=== PATIENT | female | born 1935 | race Caucasian/White ===

== ENCOUNTER → 2017-04-01 | Outpatient (CLI) | payer MEDICARE, BC ==
[~2017-04-01] VITALS: Ht 162.6 cm; Wt 103.5 kg
== END ==
LOC: RC 08:24
PROVIDERS: ATTEND Family Medicine
DX: R06.02 Shortness of breath (principal); R94.2 Abnormal results of pulmonary function studies; Z87.891 Personal history of nicotine dependence
CPT/HCPCS: 94060; 94726

== ENCOUNTER 2017-06-01 10:45 | Observation (INO) ==
[2017-06-01 15:54] VITALS: BMI 38.7
[2017-06-01] MEDS ORDERED: HEPARIN DRIP 20,000 UNIT/500 ML BAG IV SCH (17:00)
[2017-06-01] MEDS ORDERED: HEPARIN 1,000unit/ml INJECTION 10ml IV ONE ×2 (17:01→17:20)
--- NOTE | 2017-06-01 17:22 | Cardiology History & Physical ---
History of Present Illness Chief complaint: PAD HPI: Pt is an 82yo female well known to [facility] service, we follow her for carotid stenosis, HTN, pulmonary hypertension and PAD. She presented to an office visit this AM with complaints of bilateral toes turning black and purple, acute onset 3 days ago with associated numbness and tingling. She was admitted for anticoagulation therapy and aortogram with runoffs tomorrow. She denies chest pain, exertional dyspnea. She underwent cardiac cath recently with no obstructive CAD. Review of Systems - Constitutional Constitutional: Absent: weight gain, weight loss - EENMT Eyes: Absent: change in vision, loss of vision Ears: Absent: ear pain Balance: Absent: vertigo Mouth/Throat: Absent: changes in swallowing - Cardiovascular Cardiovascular: Absent: chest pain, palpitations, syncope, dyspnea on exertion, edema Vascular: Present: other (dusky toes and feet x 3 days). Absent: pedal edema - Respiratory Respiratory: Absent: dyspnea, dyspnea on exertion - Gastrointestinal Gastrointestinal: Absent: abdominal pain, change in bowel habits - Genitourinary Genitourinary: Present: urinary frequency - Musculoskeletal Musculoskeletal: Present: limited range of motion. Absent: back pain - Integumentary/Breasts Integumentary: Absent: erythema, rash, swelling - Neurological Neurological: Absent: abnormal gait, abnormal movements - Psychiatric Psychiatric: Present: depression - Endocrine Endocrine: Absent: palpitations - Hematologic/Lymphatic Hematologic/Lymphatic: Absent: easy bruising - Allergic/Immunologic Allergic/Immunologic: Absent: seasonal rhinorrhea PFSH Patient Stated Medical History Transient Ischemic Attacks ( Yes: 2003 TIA) Cataracts Yes Dental Problems Yes: DENTURES Angina Yes Hypertension Yes: ON MEDS Other Cardiology Yes: REPORTS LEAKY VALVES Diabetes Mellitus Type 2 Yes Gastroesophageal Reflux Yes Disease Hx Urinary Tract Infection Yes Depression Yes Surgical History: left CEA Family History: family hx of CAD - Social History Smoking status: Former smoker Housing: house Current occupational status: retired Current residence: Independent Living Medications Home Medications Medication Instructions Recorded Confirmed Type Allopurinol [Zyloprim] 1 tab PO DAILY 05/26/17 06/01/17 History Lisinopril [Zestril] 5 mg PO DAILY 05/26/17 06/01/17 History Metoprolol Tartrate [Lopressor] 50 mg PO BID 05/26/17 06/01/17 History Novolin 70/30 (100Unit/ml) Inj 40 unit SQ WS 05/26/17 06/01/17 History [Novolin 70/30] Novolin 70/30 (100Unit/ml) Inj 40 units SQ WB 05/26/17 06/01/17 History [Novolin 70/30] Ranitidine [Zantac] 150 mg PO DAILY 05/26/17 06/01/17 History Venlafaxine Xr [Effexor Xr] 75 mg PO DAILY 05/26/17 06/01/17 History Venlafaxine Xr [Effexor Xr] 150 mg PO DAILY 05/26/17 06/01/17 History Acetaminophen/Diphenhydramine 3 each PO HS 06/01/17 06/01/17 History [Acetaminophen Pm Caplet] Allergies Allergy/AdvReac Type Severity Reaction Status Date / Time No Known Drug Allergies Allergy Verified 05/26/17 12:03 Exam Vital signs: Temperature 96.3 F L 06/01/17 15:51 Pulse Rate 85 06/01/17 15:51 Respiratory Rate 18 06/01/17 15:51 Blood Pressure 166/71 H 06/01/17 15:51 Pulse Oximetry 96 06/01/17 15:51 Oxygen Delivery Method Room Air - Constitutional no acute distress - Routine HEENT Exam Head: Present: normocephalic, atraumatic Eye: Present: PERRL, conjunctivae pink ENT: Present: mucous membranes moist Nose: moist mucous membranes - Routine Neck Exam Present: carotid bruit (bilateral). Absent: JVD - Routine Respiratory Exam Present: CTA bilaterally - Routine Cardiovascular Exam Present: RRR. Absent: JVD - Routine Abdominal Exam Present: soft, normoactive bowel sounds, non tender. Absent: distended - Routine Extremities Exam Present: cyanosis (bilateral feet/toes), no edema, extremity cold to touch. Absent: normal capillary refill - Routine Back/Spine/Pelvis Exam Back/Spine: Present: full ROM - Routine Skin Exam Present: intact. Absent: erythema - Routine Neurological Exam Present: alert, oriented X3, CN II-XII intact - Routine Psychiatric Exam Present: normal affect, normal thought process Results 06/02/17 02:08 06/02/17 02:08 Intake and Output 06/01/17 06/01/17 06/01/17 06:59 14:59 22:59 Other: Weight 102.5 kg Patient Weight 06/02/17 06:59 Weight 102.5 kg Hospital Course This is a general summary of the patient's hospital course. For more details refer to the complete medical record. Time spent with patient: 25 - 35 minutes DVT Prophylaxis: Heparin drip GI Prophylaxis: Pepcid Assessment and Plan (1) Atherosclerosis of [place] artery of both lower extremities Current visit: Yes Status: Acute Heparin gtt initiated. Plan for aortogram with runoffs in AM. (2) Essential (primary) hypertension Current visit: Yes Status: Chronic Home lisinopril 5mg, metoprolol 50mg bid. Monitor. (3) Mixed hyperlipidemia Current visit: Yes Status: Chronic will initiate a statin (4) Type 2 diabetes mellitus without complications Current visit: Yes Status: Chronic Home insulin doses, ACHS blood glucose - Attestation Attestation Narrative: 06/02/17 12:41 Recommendation After examining the patient I agree with the above assessment. I am involved in the formulation of the patient's plan of care. Sepsis Assessment - Evaluation Sepsis screening result: No Definite Risk
[2017-06-01] MEDS: HEPARIN DRIP 20,000 UNIT/500 ML BAG IV SCH (17:50)
[2017-06-01] MEDS ORDERED: INSULIN NPH/REG 70/30 INJECTION SQ SCH (18:30)
--- NOTE | 2017-06-01 18:59 | Pharmacy Consult ---
Pharmacy Consult-Heparin - Consult Information HEPARIN CONSULT (Initial): 05/26/17 platelet count = 253 T/mm3. PTT Target Range = 50-75 sec. Will give Heparin Bolus of 6,000 units, start Heparin Drip at 1,200 units/hr ( 30 ml/hr). Heparin 20,000 units in D5W 500ml. Pharmacy will continue to monitor and make adjustments accordingly. Thank you.
[2017-06-01] MEDS ORDERED: APAP/DIPHENHYDRAMINE 500 MG/25 MG TABLET PO SCH (22:00)
[2017-06-01] MEDS ORDERED: RANITIDINE 300 MG TABLET PO ONE (22:00)
[2017-06-02] MEDS: INSULIN NPH/REG 70/30 INJECTION SQ SCH ×2 (05:46→08:25)
[2017-06-02] MEDS ORDERED: NS 1,000 ML IV SCH (07:00)
--- NOTE | 2017-06-02 07:22 | Pharmacy Consult ---
Pharmacy Consult-Heparin - Laboratory Information Heparin Plt Count 262 T/MM3 (130-400) 06/02/17 02:08 APTT 81.9 SEC (24-36) H 06/02/17 02:08 - Consult Information HEPARIN CONSULT (Recurring): PTT = 81.9 Sec. Platelet count = 262 T/mm3. Will adjust Heparin Drip to 1000 units/hr (25 ml/hr) at 0230 We will not recheck PTT because heparin drip will be dc'd at 1100. Thank you.
[2017-06-02 07:27] VITALS: TEMP 96.5
[2017-06-02] MEDS ORDERED: RANITIDINE 150 MG TABLET PO SCH (09:00)
[2017-06-02] MEDS ORDERED: ALLOPURINOL 300 MG TABLET PO SCH (09:00)
[2017-06-02] MEDS ORDERED: Venlaflaxine XR 75 MG CAPSULE (24hr) PO SCH (09:00)
[2017-06-02] MEDS ORDERED: LISINOPRIL 5 MG TABLET PO SCH (09:00)
[2017-06-02] MEDS: HEPARIN DRIP 20,000 UNIT/500 ML BAG IV SCH (11:56)
[2017-06-02] MEDS ORDERED: LIDOCAINE 1% (10mg/ml) 30ml SDV INJ ONE (12:38)
[2017-06-02] MEDS ORDERED: HEPARIN 1,000 UNITS/500 ML PREMIX (*CVL ONLY*) IV ONE (12:38)
[2017-06-02] MEDS ORDERED: MIDAZOLAM 2mg/2ml INJECTION ONE (12:50)
[2017-06-02] MEDS ORDERED: FentaNYL 100 MCG/2 ML INJECTION ONE (12:50)
[2017-06-02] MEDS ORDERED: PNEUMOCOCCAL 13 VACCINE 0.5ml INJECTION IM ONE (12:58)
[2017-06-02] MEDS ORDERED: Bisacodyl EC TAB 5 MG TABLET PO PRN (14:22)
[2017-06-02] MEDS ORDERED: ONDANSETRON 4 MG/2 ML INJECTION IVP PRN (14:22)
[2017-06-02] MEDS ORDERED: ATROPINE 1 MG/ML INJECTION IVP PRN (14:22)
[2017-06-02] MEDS ORDERED: ACETAMINOPHEN 325 MG TABLET PO PRN (14:22)
[2017-06-02] MEDS ORDERED: NITROGLYCERIN 0.4 MG SUBLINGUAL TABLET SL PRN (14:22)
[2017-06-02] MEDS ORDERED: HYDROCODONE/APAP 7.5 MG/325 MG TABLET PO PRN (14:22)
[2017-06-02] MEDS ORDERED: MAG-AL + SIM ORAL LIQUID 30ml PO PRN (14:22)
[2017-06-02] MEDS ORDERED: PROMETHAZINE 25 MG INJECTION IVP PRN (14:22)
[2017-06-02] MEDS ORDERED: BISACODYL 10 MG SUPPOSITORY RECTALLY PRN (14:22)
[2017-06-02] MEDS ORDERED: MORPHINE SULFATE 4 MG SYRINGE IVP PRN ×2 (14:22)
[2017-06-02] MEDS ORDERED: LORazepam 0.5 MG TABLET PO PRN (14:22)
[2017-06-02] MEDS ORDERED: METOCLOPRAMIDE 10mg/2ml INJECTION IVP PRN (14:22)
--- NOTE | 2017-06-02 16:06 | Discharge Summary ---
<Roxana Shaffer R - Last Filed: 06/02/17 17:28> Discharge Information Date of admission: 06/01/17 15:26 Anticipated date of discharge: 06/02/17 Attending Physician: Tony Manuel MD Primary care physician: Abimael Silva MD Consults: None - Discharge Diagnosis (1) Atherosclerosis of [place] artery of both lower extremities Problem Details: Aortogram with angiography and runoff's to LE today, showed mild distal disease. Patient to increase ambulation and start daily 325mg ASA. Status: Acute (2) Essential (primary) hypertension Problem Details: Well controlled. Resume Metoprolol Tartrate 50mg BID & Lisinopril 5mg Daily. Status: Chronic (3) Mixed hyperlipidemia Problem Details: Will initiate statin in the office. Status: Chronic (4) Type 2 diabetes mellitus without complications Qualifiers: Diabetes mellitus usp insulin use: with usp use Qualified Code( s): E11.9 - Type 2 diabetes mellitus without complications; Z79.4 - jail ( current) use of insulin Problem Details: Resume home regimen insulin and continue to f/u with PCP. Status: Chronic - Procedures Procedures: 06/02/2017 Abdominal Aortography & LE angiography wih runoffs - Laboratory Labs: 06/02/17 02:08 06/02/17 02:08 History of Present Illness HPI: Pt is an 82yo female well known to [facility] service, we follow her for carotid stenosis, HTN, pulmonary hypertension and PAD. She presented to an office visit this AM with complaints of bilateral toes turning black and purple, acute onset 3 days ago with associated numbness and tingling. She was admitted for anticoagulation therapy and aortogram with runoffs tomorrow. She denies chest pain, exertional dyspnea. She underwent cardiac cath recently with no obstructive CAD. Hospital Course This is a general summary of the patient's hospital course. For more details refer to the complete medical record. Hospital course: Laboratory Tests 06/02/17 06/02/17 06/02/17 02:08 02:08 02:08 WBC 8.7 RBC 4.14 Hgb 12.9 Hct 39.2 MCV 94.7 MCH 31.2 MCHC 32.9 RDW Std Deviation 44.0 Plt Count 262 MPV 10.1 Neutrophils % (Manual) 44.0 Band Neutrophils % 1.0 Lymphocytes % (Manual) 31.0 Monocytes % (Manual) 14.0 H Eosinophils % (Manual) 9.0 H Basophils % (Manual) 1.0 Neutrophils # (Manual) 3.8 Band Neutrophils # 0.1 Lymphocytes # (Manual) 2.7 Monocytes # (Manual) 1.2 H Eosinophils # (Manual) 0.8 H Basophils # (Manual) 0.1 RBC Morph Comment Normal APTT 81.9 H Turbidity < 20 Sodium 142 Potassium 3.8 Chloride 105 Carbon Dioxide 31 H Anion Gap 6 BUN 12.0 Creatinine 0.9 GFR Calculation 60 BUN/Creatinine Ratio 13 Glucose 60 L Calculated Osmolality 271 Calcium 9.3 Icterus Index < 2 Specimen Hemolysis < 15 Time spent with patient: 25 - 35 minutes GI Prophylaxis: Rantidine Exam Vital signs: Temperature 96.5 F L 06/02/17 07:25 Pulse Rate 61 06/02/17 15:45 Respiratory Rate 16 06/02/17 15:45 Blood Pressure 113/59 06/02/17 15:45 Pulse Oximetry 94 06/02/17 15:45 Oxygen Delivery Method Room Air Narrative: Patient doing well post procedure. Denies any pain. States she is just feeling sleepy. Discussed her f/u appointment and she states she has an appointment already scheduled from her HC for 06/15/17. Notified to keep and start taking a daily 325mg ASA. - Constitutional no acute distress, morbidly obese, cooperative - Routine HEENT Exam Head: Present: normocephalic Eye: Present: EOMI ENT: Present: mucous membranes moist - Routine Neck Exam Present: carotid bruit. Absent: JVD, lymphadenopathy Comments: bilaterally - Routine Respiratory Exam Present: CTA bilaterally. Absent: dyspnea, wheezes - Routine Cardiovascular Exam Present: RRR. Absent: no murmur, gallop, rubs, click - Routine Abdominal Exam Present: soft, normoactive bowel sounds, non distended, non tender - Routine Extremities Exam Present: cyanosis, no edema, non tender, pulses intact, extremity cold to touch Comments: dee feet/toes - Routine Skin Exam Present: intact, warm. Absent: erythema, dry, wounds, rash - Routine Neurological Exam Present: alert, oriented X3 - Routine Psychiatric Exam Present: normal affect, cooperative Results 06/02/17 02:08 06/02/17 02:08 Coagulation 06/02/17 Range/Units 02:08 APTT 81.9 H (24-36) SEC CBC 06/02/17 Range/Units 02:08 WBC 8.7 (4.5-11.0) T/MM3 RBC 4.14 (4.00-5.20) M/MM3 Hgb 12.9 (12-16) GM/DL Hct 39.2 (36-46) % Plt Count 262 (130-400) T/MM3 Comprehensive Metabolic Panel 06/02/17 Range/Units 02:08 Sodium 142 (134-144) MEQ/L Potassium 3.8 (3.6-5) MEQ/L Chloride 105 (98-107) MEQ/L Carbon Dioxide 31 H (22-30) MEQ/L BUN 12.0 (7-17) MG/DL Creatinine 0.9 (0.7-1.2) MG/DL Glucose 60 L (65-110) MG/DL Calcium 9.3 (8.4-10.2) MG/DL Intake and Output 06/02/17 06/02/17 06/02/17 06:59 14:59 22:59 Intake Total 672 / 672 285.833 / 285.833 Output Total 325 / 325 500 / 500 Balance 347 / 347 -214.167 / -214.167 Intake: IV 272 / 272 185.833 / 185.833 HEPARIN DRIP 20,000 unit 272 / 272 185.833 / 185.833 In 500 ml @ 30 mls/hr IV .[id number] [facility] Rx#: [id number] Oral 400 / 400 100 / 100 Output: Urine 325 / 325 500 / 500 Other: # Voids 1 Weight 101.5 kg Patient Weight 06/03/17 06:59 Weight 101.5 kg Discharge Plan - Med Rec/Dispo Referrals/Follow Up: Tony Manuel MD [Physician] - Cynthia Instructions: [facility] [place] [facility] [place] Additional Instructions: Need to f/u with in 2-4 weeks. Please call the office on Tuesday if they have not called you to schedule an appointment. Prescriptions: New Aspirin [ASA] 325 mg PO DAILY #30 tablet Continue Metoprolol Tartrate [Lopressor] 50 mg PO BID Venlafaxine Xr [Effexor Xr] 150 mg PO DAILY Allopurinol [Zyloprim] 1 tab PO DAILY Ranitidine [Zantac] 150 mg PO DAILY Novolin 70/30 (100Unit/ml) Inj [Novolin 70/30] 40 unit SQ WS Venlafaxine Xr [Effexor Xr] 75 mg PO DAILY Lisinopril [Zestril] 5 mg PO DAILY Novolin 70/30 (100Unit/ml) Inj [Novolin 70/30] 40 units SQ WB Acetaminophen/Diphenhydramine [Acetaminophen Pm Caplet] 3 each PO HS - Disposition 01 Discharged Home, Self-Care <Tony Manuel - Last Filed: 06/03/17 15:15> Discharge Information Date of admission: 06/01/17 15:26 Attending Physician: Tony Manuel MD Primary care physician: Abimael Silva MD - Discharge Diagnosis (1) Atherosclerosis of [place] artery of both lower extremities Problem Details: Aortogram with angiography and runoff's to LE today, showed mild distal disease. Patient to increase ambulation and start daily 325mg ASA. Status: Acute (2) Essential (primary) hypertension Problem Details: Well controlled. Resume Metoprolol Tartrate 50mg BID & Lisinopril 5mg Daily. Status: Chronic (3) Mixed hyperlipidemia Problem Details: Will initiate statin in the office. Status: Chronic (4) Type 2 diabetes mellitus without complications Qualifiers: Diabetes mellitus usp insulin use: with usp use Qualified Code( s): E11.9 - Type 2 diabetes mellitus without complications; Z79.4 - jail ( current) use of insulin Problem Details: Resume home regimen insulin and continue to f/u with PCP. Status: Chronic - Laboratory Labs: 06/02/17 02:08 06/02/17 02:08 Hospital Course This is a general summary of the patient's hospital course. For more details refer to the complete medical record. Exam Vital signs: Temperature 96.5 F L 06/02/17 07:25 Pulse Rate 62 06/02/17 16:00 Respiratory Rate 27 H 06/02/17 16:00 Blood Pressure 109/54 06/02/17 16:00 Pulse Oximetry 98 06/02/17 16:00 Oxygen Delivery Method Room Air Results 06/02/17 02:08 06/02/17 02:08 Intake and Output 06/02/17 06/03/17 06/03/17 22:59 06:59 14:59 Intake Total 511.25 / 511.25 Balance 511.25 / 511.25 Intake: IV 511.25 / 511.25 Normal Saline 1,000 ml @ 511.25 / 511.25 75 mls/hr IV .[id number] [facility] Rx#:[id number] Discharge Plan - Med Rec/Dispo - Attestation Attestation Narrative: 06/03/17 14:59 Recommendation After examining the patient I agree with the above assessment. I am involved in the formulation of the patient's plan of care.
[2017-06-02 16:08] VITALS: BP 109/54; RESP 27; O2SAT 98
[2017-06-02 16:14] VITALS: PULSE 62
--- NOTE | 2017-06-02 16:25 | Cardiology Report ---
DATE OF PROCEDURE June 02, 2017 The patient is an 82-year-old lady who was admitted with ischemic toes and was referred for further evaluation by angiography and possible intervention. Informed consent was obtained after explaining the procedure and the potential risks to the patient who agreed to proceed with the procedure. PROCEDURE 1. Abdominal aortography by placing catheter in abdominal aorta across the renal arteries. 2. Pelvic angiography by placing catheter in distal abdominal aorta. 3. Selective left lower extremity angiogram using crossover technique and placing catheter in left SFA and left common femoral artery. 4. Runoffs of the right lower extremity through the right femoral sheath. 5. Successful Mynx deployment for hemostasis. TECHNIQUE She was prepped and draped in the usual sterile techniques. Conscious sedation was performed using Versed and fentanyl. 1% lidocaine was used for local anesthesia. Using modified Seldinger technique, arterial access was obtained into the right femoral artery with placement of a 6-Cymraes arterial sheath. ABDOMINAL AORTOGRAPHY Abdominal aortography showed diffuse irregularities of the abdominal aorta with no significant lesions or aneurysms. There were single renal arteries to each kidney which were patent. PELVIC ANGIOGRAPHY Pelvic angiography showed 20%-30% ostial stenosis of the right common iliac artery. Otherwise, right common iliac artery was patent. Right internal and external iliac arteries were patent. Right common femoral artery was patent. Left common iliac artery was patent. Left internal and external iliac arteries were patent with no significant stenosis. Left common femoral artery was patent. Selective left lower extremity angiogram showed patent profunda, SFA and popliteal arteries. Left anterior tibial artery was patent but this tapered down to a small-caliber vessel very distally at the level of the foot. Left peroneal artery was patent and again tapered down to a very small vessel distally. Left posterior tibial artery was patent but tapered down to very small vessel distally. The flow was somewhat slow in the left lower extremity arteries. Runoffs of the right lower extremity showed patent profunda. SFA was patent. Popliteal artery was patent. The right peroneal artery was patent. The right anterior tibial artery had slow flow and appeared to be occluded in mid segment. Right posterior tibial artery was patent and appeared to be slow flow and tapered down to a small-caliber vessel distally. The patient tolerated the procedure well with no complications. Mynx was used for hemostasis. IMPRESSION 1. Peripheral vascular disease as described above mainly in distal infrapopliteal vessels. 2. Successful Mynx deployment for hemostasis. PLAN Medical management. The patient may benefit from a walking program. HERBER
[2017-06-03] MEDS ORDERED: Venlaflaxine XR 75 MG CAPSULE (24hr) PO SCH (08:00)
[2017-06-03] MEDS ORDERED: ASPIRIN 325 MG TABLET PO SCH (09:00)
== END 2017-06-02 17:45 | disposition home or self-care (01) ==
LOC: SRG
PROVIDERS: ADMIT Internal Medicine Cardiovascular Disease; ATTEND Internal Medicine Cardiovascular Disease

== ENCOUNTER 2018-01-25 05:53 | Inpatient (IN) ==
[2018-01-25 06:17] VITALS: BMI 38.2
[2018-01-25] MEDS: LR 1,000 ML IV SCH ×4 (06:55→15:32)
--- NOTE | 2018-01-25 07:04 | Anesthesia Preoperative Report ---
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 Proposed Procedure: colonoscopy NPO Since Date: 01/25/18 NPO Since Time: 23:00 Allergies/Adverse Reactions: Allergies Allergy/AdvReac Type Severity Reaction Status Date / Time No Known Drug Allergies Allergy Verified 01/25/18 06:26 - Vital Signs Vital Signs: Temperature 97.8 F 01/25/18 06:16 Pulse Rate 91 01/25/18 06:49 Respiratory Rate 13 01/25/18 06:16 Blood Pressure 158/60 H 01/25/18 06:16 Pulse Oximetry 97 01/25/18 06:16 Height and Weight: Height 1.63 m Weight 101.2 kg Body Mass Index 38.2 - Medications Inpatient Medications: Current Medications Heparin Sodium (Porcine) (Heparin 5,000unit/Ml) 5,000 unit SUB-Q MANAGER PLACEMENT ONE Stop: 01/25/18 13:44 Ertapenem 1 g/ Sodium Chloride 100 mls @ 200 mls/hr IV PREOP ONE Stop: 01/25/18 14:13 Lactated Ringer's (Lactated Ringers) 1,000 mls @ 50 mls/hr IV .Q20H MICHAEL Last Admin: 01/25/18 06:55 Dose: 50 mls/hr Lidocaine HCl (Xylocaine-Mpf 1% Vial) 1 mg ID O ONE Stop: 01/25/18 13:41 Last Admin: 01/25/18 06:55 Dose: Not Given Home Medications: Home Medications Medication Instructions Recorded Confirmed Type Allopurinol [Zyloprim] 300 mg PO DAILY 05/26/17 01/25/18 History Venlafaxine XR [Effexor Xr] 150 mg PO DAILY 05/26/17 01/25/18 History Venlaflaxine XR [Effexor Xr] 75 mg PO DAILY 05/26/17 01/25/18 History Pravastatin [Pravachol] 20 mg PO DAILY 10/30/17 01/25/18 History Lisinopril [Prinivil] 5 mg PO DAILY #30 tab 11/03/17 01/25/18 Rx Humulin 70/30 (insulin NPH and reg 30 unit SQ WS ml 01/05/18 01/25/18 History human insulin) 100 unit/mL (70-30) SQ Humulin 70/30 (insulin NPH and reg 50 unit SQ QAM ml 01/05/18 01/25/18 History human insulin) 100 unit/mL (70-30) SQ Naproxen sodium 220 mg tablet 220 mg PO Q12H PRN 01/05/18 01/25/18 History Nitrostat (nitroglycerin) 0.4 mg 0.4 mg SL Q5M PRN 01/05/18 01/24/18 History sublingual tablet Tylenol PM diphenhydramine 25 3 tab PO HS PRN tab 01/05/18 01/25/18 History mg-acetaminophen 500 mg tablet Zantac (Ranitidine) 150 mg tablet 150 mg PO HS 01/05/18 01/25/18 History aspirin 325 mg tablet 325 mg PO DAILY 01/13/18 01/25/18 History Is Patient on Beta Yvonne?: No - Medical History Respiratory: Reports: Dyspnea (on exertion) DENIES: Sleep Apnea Cardiovascular: Reports: Angina (chest discomfort with anxiety-sees hayden), Hypertension (ON MEDS), Other (REPORTS LEAKY VALVES) Gastrointestional: Reports: Gastroesophageal Reflux Disease, Morbid Obesity Neuro/Musculoskeletal: Reports: Back Problems, Depression, Other (TIAS before carotid in 2003) Renal/Endocrine: Reports: Diabetes Mellitus Type 2 (avg bs at home 130) Other History: Reports: Anesthesia Reactions (N&V), Cancer (COLON) - Surgical History Cardiac Surgeries/Treatments: Reports: Cardiac Catheterization, Other (LEFT CAROTID SURG 02/2004) Hx Family Anesthesia Reaction: No - Social History Smoking Status: Former smoker Pack-years: 50 Hx Chewing Tobacco Use: No Second Hand Exposure: No Substance Use Type: does not use Alcohol Intake Frequency: does not drink - Pertinent Findings Laboratory: CBC and BMP 01/25/18 06:11 01/25/18 06:11 BMP 01/25/18 06:11 Sodium 144 Potassium 3.8 Chloride 104 Carbon Dioxide 28 BUN 8.0 Creatinine 0.8 Glucose 174 H Calcium 9.6 Liver Function 01/25/18 Range/Units 06:11 Total Bilirubin 0.70 (0.20-1.30) MG/DL AST 26 (14-36) U/L ALT 17 (1-35) U/L Alkaline Phosphatase 107 (38-126) U/L Albumin 4.6 (3.5-5.0) g/dL EKG: Sinus Rhythm - Physical Exam Respiratory Exam: Present: lungs clear, bilateral breath sounds equal Cardiovascular Exam: Present: regular rate and rhythm, no murmur - Airway Assessment Mallampati Score: I TMD: 2 Fingerbreadths Neck Extension: good Teeth: upper dentures, lower dentures Overall Assessment: no airway concerns - ASA ASA Score: 3 - Plan Anesthesia: General TIVA - Discussion Discussion: Discussed risks/options/alternatives of anesthesia and questions answered. Patient consents. Nursing pain assessment noted. Attestation Statement: Prior to the delivery of any anesthetic medication, I examined the patient, developed the plan, obtained the patient's consent and discussed the risk and benefits of the procedure with the patient/guardian. - Additional Information Seen by Anesthesia: Yes
[2018-01-25] MEDS ORDERED: SCOPOLAMINE 1mg/3 days PATCH (Eq. 1.5 Patch) TD ONE (07:07)
--- NOTE | 2018-01-25 07:07 | Anesthesia Preoperative Report ---
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 Proposed Procedure: robotic colon resection NPO Since Date: 01/24/18 NPO Since Time: 23:00 Allergies/Adverse Reactions: Allergies Allergy/AdvReac Type Severity Reaction Status Date / Time No Known Drug Allergies Allergy Verified 01/25/18 06:26 - Vital Signs Vital Signs: Temperature 97.8 F 01/25/18 06:16 Pulse Rate 91 01/25/18 06:49 Respiratory Rate 13 01/25/18 06:16 Blood Pressure 158/60 H 01/25/18 06:16 Pulse Oximetry 97 01/25/18 06:16 Height and Weight: Height 1.63 m Weight 101.2 kg Body Mass Index 38.2 - Medications Inpatient Medications: Current Medications Heparin Sodium (Porcine) (Heparin 5,000unit/Ml) 5,000 unit SUB-Q [employer] ONE Stop: 01/25/18 13:44 Ertapenem 1 g/ Sodium Chloride 100 mls @ 200 mls/hr IV PREOP ONE Stop: 01/25/18 14:13 Lactated Ringer's (Lactated Ringers) 1,000 mls @ 50 mls/hr IV .Q20H MICHAEL Last Admin: 01/25/18 06:55 Dose: 50 mls/hr Lidocaine HCl (Xylocaine-Mpf 1% Vial) 1 mg ID O ONE Stop: 01/25/18 13:41 Last Admin: 01/25/18 06:55 Dose: Not Given Home Medications: Home Medications Medication Instructions Recorded Confirmed Type Allopurinol [Zyloprim] 300 mg PO DAILY 05/26/17 01/25/18 History Venlafaxine XR [Effexor Xr] 150 mg PO DAILY 05/26/17 01/25/18 History Venlaflaxine XR [Effexor Xr] 75 mg PO DAILY 05/26/17 01/25/18 History Pravastatin [Pravachol] 20 mg PO DAILY 10/30/17 01/25/18 History Lisinopril [Prinivil] 5 mg PO DAILY #30 tab 11/03/17 01/25/18 Rx Humulin 70/30 (insulin NPH and reg 30 unit SQ WS ml 01/05/18 01/25/18 History human insulin) 100 unit/mL (70-30) SQ Humulin 70/30 (insulin NPH and reg 50 unit SQ QAM ml 01/05/18 01/25/18 History human insulin) 100 unit/mL (70-30) SQ Naproxen sodium 220 mg tablet 220 mg PO Q12H PRN 01/05/18 01/25/18 History Nitrostat (nitroglycerin) 0.4 mg 0.4 mg SL Q5M PRN 01/05/18 01/24/18 History sublingual tablet Tylenol PM diphenhydramine 25 3 tab PO HS PRN tab 01/05/18 01/25/18 History mg-acetaminophen 500 mg tablet Zantac (Ranitidine) 150 mg tablet 150 mg PO HS 01/05/18 01/25/18 History aspirin 325 mg tablet 325 mg PO DAILY 01/13/18 01/25/18 History Is Patient on Beta Yvonne?: No - Medical History Respiratory: Reports: Dyspnea (on exertion) DENIES: Sleep Apnea Cardiovascular: Reports: Angina (chest discomfort with anxiety-sees hayden), Hypertension (ON MEDS), Other (REPORTS LEAKY VALVES) Gastrointestional: Reports: Gastroesophageal Reflux Disease, Morbid Obesity Neuro/Musculoskeletal: Reports: Back Problems, Depression, Other (TIAS before carotid in 2003) Renal/Endocrine: Reports: Diabetes Mellitus Type 2 (avg bs at home 130) Other History: Reports: Anesthesia Reactions (N&V), Cancer (COLON) - Surgical History Cardiac Surgeries/Treatments: Reports: Cardiac Catheterization, Other (LEFT CAROTID SURG 02/2004) Hx Family Anesthesia Reaction: No - Social History Smoking Status: Former smoker Pack-years: 50 Hx Chewing Tobacco Use: No Second Hand Exposure: No Substance Use Type: does not use Alcohol Intake Frequency: does not drink - Pertinent Findings Laboratory: CBC and BMP 01/25/18 06:11 01/25/18 06:11 BMP 01/25/18 06:11 Sodium 144 Potassium 3.8 Chloride 104 Carbon Dioxide 28 BUN 8.0 Creatinine 0.8 Glucose 174 H Calcium 9.6 Liver Function 01/25/18 Range/Units 06:11 Total Bilirubin 0.70 (0.20-1.30) MG/DL AST 26 (14-36) U/L ALT 17 (1-35) U/L Alkaline Phosphatase 107 (38-126) U/L Albumin 4.6 (3.5-5.0) g/dL EKG: Sinus Rhythm - Physical Exam Respiratory Exam: Present: lungs clear, bilateral breath sounds equal Cardiovascular Exam: Present: regular rate and rhythm, no murmur - Airway Assessment Mallampati Score: I TMD: 2 Fingerbreadths Neck Extension: good Teeth: upper dentures, lower dentures Overall Assessment: no airway concerns - ASA ASA Score: 3 - Plan Anesthesia: General Inhalation Gases - Discussion Discussion: Discussed risks/options/alternatives of anesthesia and questions answered. Patient consents. Nursing pain assessment noted. Attestation Statement: Prior to the delivery of any anesthetic medication, I examined the patient, developed the plan, obtained the patient's consent and discussed the risk and benefits of the procedure with the patient/guardian. - Additional Information Seen by Anesthesia: Yes
[2018-01-25] MEDS ORDERED: LIDOCAINE 2% (100mg/5mL) 5ml PF SDV ONE (07:14)
[2018-01-25] MEDS ORDERED: PROPOFOL 500 MG/50 ML VIAL ONE (07:14)
[2018-01-25] MEDS ORDERED: SALINE FLUSH 10ml SYRINGE ONE (07:17)
[2018-01-25] MEDS ORDERED: FentaNYL 250 MCG/5 ML INJECTION ONE ×3 (07:27→13:53)
--- NOTE | 2018-01-25 07:45 | Procedure Note ---
- Procedure Date/Time: Date: 01/25/18 Time: 742 Surgeon: David ASA Score: 3 Proceure: Colonoscopy-snare polypectomy, Colonoscopy-forceps polypectomy - Postoperative Colonoscopy Diagnosis Diverticulosis Polyps at: Cecum (with prior tatoo visible) Polyps at (cm): 70 cm (small) Comments: Mass at about 25 cm from anal verge. - Complications Complications: None, Other (bowel prep was poor) Estimated Blood Loss: See Anesthesia Record. Vital Signs: See Anesthesia and PACU record.
[2018-01-25] MEDS ORDERED: ANESTHESIA MIXTURE 50 ML IV ONE (12:15)
[2018-01-25] MEDS ORDERED: ROCURONIUM 50 MG/5 ML INJECTION IVP ONE (12:16)
[2018-01-25] MEDS ORDERED: PROPOFOL 20 ML ONE (12:16)
[2018-01-25] MEDS ORDERED: ONDANSETRON 4 MG/2 ML INJECTION ONE (12:50)
[2018-01-25] MEDS ORDERED: DiphenhydrAMINE 50 MG/ML INJECTION ONE (12:50)
[2018-01-25] MEDS ORDERED: EPHEDRINE 50mg/ml INJECTION ONE (12:56)
[2018-01-25] MEDS ORDERED: PHENYLEPHRINE INJ 10 MG/ML VIAL IV ONE (12:59)
--- NOTE | 2018-01-25 13:22 | Operative Note ---
DATE OF SERVICE 01/25/2018 SURGEON Chuck Hernandez MD PREOPERATIVE DIAGNOSIS Invasive carcinoma at 25 cm from the anal verge. Personal history of adenomatous colon polyps. Sessile polyps/tubulovillous adenoma unable to be removed in its entirety previously involving the ascending colon. POSTOPERATIVE DIAGNOSIS Invasive carcinoma at 25 cm from the anal verge. Personal history of adenomatous colon polyps. 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 PROCEDURE Colonoscopy with endoscopic tattooing of mass at 25 cm from the anal verge, polypectomies via cold biopsy technique and snare polypectomy technique. ANESTHESIA TIVA BRIEF HISTORY/INDICATIONS Mrs. Hall is an 82-year-old female who presents today to [facility] to undergo colonoscopy as well as a colonic resection of her known malignancy. Patient had recently underwent a colonoscopy and was found to have several adenomatous colon polyps as well as a mass involving her sigmoid colon region. The patient did undergo a metastatic workup and has not been found fortunately to have evidence for metastatic disease. She was found to have a polyp described at 110 cm from the anal verge that was unable to be removed in its entirety endoscopically but was biopsied and returned as that of a tubulovillous adenoma. Patient presents today to undergo repeat colonoscopy to see if this residual polyp within her ascending colon can be removed in its entirety endoscopically in conjunction with a colonic resection. For completeness please refer to multiple notes included in the patient's chart. FINDINGS Upon colonoscopy the patient was found to have an obvious mass as previously described at 25 cm from the anal verge. There was several diverticula within the sigmoid colon region. She was found to have a small diminutive appearing colonic polyp at 70 cm from the anal verge that was on the order of about 5 mm in diameter and removed in its entirety via cold biopsy technique. She was found to have an area of prior tattooing as well involving the ileocecal valve region. Adjacent to ileocecal valve region, the patient was found to have a residual sessile polyp that was on the order of about 1.5 cm in diameter. This polyp was able to be removed in its entirety via piecemeal snare polypectomy technique. DESCRIPTION OF PROCEDURE After informed consent was obtained, patient was brought to the endoscopy suite and placed on the table in left lateral decubitus position. The patient subsequently underwent total intravenous anesthesia by the nurse general manager in training per my request. Formal time-out was then completed. Next a digital rectal examination was performed. Normal sphincter tone. No rectal masses were appreciated. An Olympus colonoscope was inserted in the anus and advanced up to about 25 cm from the anal verge where one could see the previously described malignancy. One could see some tattooing that was still present but had faded. It did appear that the tattooing was on one side of the lumen. I elected to go ahead and tattoo this area circumferentially. Utilizing an injector needle and spot dye, the area of concern was endoscopically tattooed circumferentially. Scope was then continued to be advanced up to 70 cm from the anal verge where the patient was found to have a diminutive appearing colonic polyp that was on the order of about 5 mm in diameter. This polyp was grasped and removed in its entirety via cold biopsy technique. Colonoscope was then continued to be advanced into the cecum region. There was a considerable amount of stool present. This was irrigated and suctioned but I was not able to see any area of tattooing or residual polyp. Visualization was not ideal at this location. Scope was then slowly withdrawn and copious irrigation was performed and additional irrigation was performed. I was unable to identify the residual polyp initially. Quite some time was spent advancing and withdrawing the scope into the ascending colon region as well as the transverse colon region. I was unable to identify this previously described residual polyp. One last attempt was made and the scope was advanced back into the cecum and additional irrigation was performed. One could then see some endoscopic tattooing that was present along involving the ileocecal valve region. Adjacent to the ileocecal valve region, one could see an adenomatous appearing residual polyp as discussed above. This polyp was on the order of about 1.5 cm in diameter. Polyp was able to be removed in its entirety via piecemeal snare polypectomy technique and suctioned into a colonic trap to be submitted for pathologic evaluation. There was no endoscopic evidence for residual polyp. Scope was then withdrawn until it was removed from the patient' s anal verge. The patient tolerated the procedure without difficulty and was sent back to the preop area in stable condition. Later today the patient will undergo resection of her known malignancy. HERBER
[2018-01-25] MEDS ORDERED: LIDOCAINE 1% (10mg/ml) 2mL INJ PF SDV ID ONE (13:40)
[2018-01-25] MEDS ORDERED: HEPARIN SUB-Q 5,000units/0.5ml INJECTION SQ ONE (13:43)
[2018-01-25] MEDS ORDERED: ERTAPENEM 1 G in NS 100 ML IV ONE (13:44)
[2018-01-25] MEDS ORDERED: BUPIVACAINE 0.25%/EPI 1:200,000 30ml SDV ONE (14:23)
[2018-01-25] MEDS ORDERED: METOCLOPRAMIDE 10mg/2ml INJECTION IVP PRN (14:42)
[2018-01-25] MEDS ORDERED: FentaNYL 100 MCG/2 ML INJECTION IVP PRN (14:42)
[2018-01-25] MEDS ORDERED: ONDANSETRON 4 MG/2 ML INJECTION IVP PRN ×2 (14:42→16:33)
--- NOTE | 2018-01-25 15:16 | General Surgery Procedure Note ---
Date of Procedure: 01/25/18 Surgeon: David Hvac Technician Residential: Mic Tao APRN Postoperative Diagnosis: Sigmoid colon cancer Procedure: Open Sigmoid resection with primary anastomosis . Estimated Blood Loss: See Anesthesia Record.
[2018-01-25] MEDS ORDERED: NS 1,000 ML IV SCH (16:33)
[2018-01-25] MEDS ORDERED: HYDROCODONE/APAP 5mg/325mg TABLET PO PRN (16:33)
[2018-01-25] MEDS ORDERED: NITROGLYCERIN 0.4 MG SUBLINGUAL TABLET SL PRN (16:33)
[2018-01-25] MEDS: MORPHINE PCA 30 MG/30 ML SYRINGE IV PRN (16:56)
[2018-01-25] MEDS: KETOROLAC 15 MG/ML INJECTION IVP PRN (16:57)
--- NOTE | 2018-01-25 17:33 | Consult Note ---
Consult Information - Data of Consult Consult date: 01/25/18 Requesting Physician: Chuck Hernandez MD Primary Care Provider: Abimael Silva MD Family Provider: Abimael Silva MD - Consult Narrative Reason for consult: perioperative diabetes management History of present illness: Mrs. Hall is an 82-year-old female who underwent screening colonoscopy on 01/05/18 after she described some intermittent rectal bleeding earlier in the year. She was found to have mild diverticulosis, a large colon mass consistent with colon cancer at 25 cm, and a tubulovillous adenoma adenoma at 110 cm. Pathology of the mass at 25 cm revealed invasive moderately differentiated adenocarcinoma , grade 2. She is subsequently hospitalized by Dr. Hernandez at this time for open colonic resection of colon cancer. The patient is seen postoperatively after transferred to the intensive care unit. She reports abdominal discomfort and some back pain, discomfort taking a deep breath, but no nausea. Family was not available. Patient reports A1C is about 7 and this been checked recently. She denies history of retinopathy, nephropathy, or neuropathy associated with eyeglasses of diabetes. She was hemodynamically stable and transferred to the ICU. Past Medical History Past Medical History Colon cancer, Tubulovillous adenoma of colon TIA (transient ischemic attack) Depression Diabetes mellitus GERD Hypertension Hyperlipidemia Surgical History: -left Carotid endarterectomy at age 69. -Bilateral vein stripping 1968. -colonoscopy, tubulovillous adenoma with high grade dysphasia at 110 cm AND adenocarcinoma at [address] Silva. -Bilateral cataract extractions. -Breast biopsies for benign disease Family History: Family History (Last Updated 01/25/18 @ 17:27 by Cindi Vasquez MD) Sister Alcoholic cirrhosis Stroke Father Heart attack Brother Hodgkins disease Heart attack Lung cancer Mother Coronary artery disease Family History Updates: Updated above - Social History Smoking status: Former smoker Substance use type: does not use Alcohol intake frequency: does not drink Does patient use chewing tobacco?: No Social history: PCP-Dr. Silva Full code, DPOA patient's daughter Lorraine Review of Systems All systems PM: 10-point ROS was reviewed, no additional remarkable complaints except (C. difficile colitis in November following treatment for pneumonia, patient denies ongoing diarrhea. Chronic urinary incontinence. No other symptoms identified on comprehensive review of systems.) Medications Home Medications Medication Instructions Recorded Confirmed Type Allopurinol [Zyloprim] 300 mg PO DAILY 05/26/17 01/25/18 History Venlafaxine XR [Effexor Xr] 150 mg PO DAILY 05/26/17 01/25/18 History Venlaflaxine XR [Effexor Xr] 75 mg PO DAILY 05/26/17 01/25/18 History Pravastatin [Pravachol] 20 mg PO DAILY 10/30/17 01/25/18 History Lisinopril [Prinivil] 5 mg PO DAILY #30 tab 11/03/17 01/25/18 Rx Humulin 70/30 (insulin NPH and reg 30 unit SQ WS ml 01/05/18 01/25/18 History human insulin) 100 unit/mL (70-30) SQ Humulin 70/30 (insulin NPH and reg 50 unit SQ QAM ml 01/05/18 01/25/18 History human insulin) 100 unit/mL (70-30) SQ Naproxen sodium 220 mg tablet 220 mg PO Q12H PRN 01/05/18 01/25/18 History Nitrostat (nitroglycerin) 0.4 mg 0.4 mg SL Q5M PRN 01/05/18 01/24/18 History sublingual tablet Tylenol PM diphenhydramine 25 3 tab PO HS PRN tab 01/05/18 01/25/18 History mg-acetaminophen 500 mg tablet Zantac (Ranitidine) 150 mg tablet 150 mg PO HS 01/05/18 01/25/18 History aspirin 325 mg tablet 325 mg PO DAILY 01/13/18 01/25/18 History Allergies Allergy/AdvReac Type Severity Reaction Status Date / Time No Known Drug Allergies Allergy Verified 01/25/18 06:26 Exam Vital Signs: Temperature 98.3 F 01/25/18 16:02 Pulse Rate 86 01/25/18 16:00 Respiratory Rate 22 01/25/18 16:00 Blood Pressure 156/67 H 01/25/18 16:00 Pulse Oximetry 96 01/25/18 16:00 Drowsy female, arouses to voice, moderately uncomfortable Conjugate gaze, pupils 1.5 mm bilaterally, EOMI, oropharynx clear, membranes moist, neck supple and without adenopathy Respirations nonlabored, diminished inspiratory effort, breath sounds clear in the upper anterior cueva, decreased breath sounds lower anterior cueva Regular rhythm, S1-S2 Abdomen is soft, obese, nontender to light palpation, sparse bowel sounds present Skin without generalized rash Moves all extremities to commands, sensation intact to light touch 4 extremities Sedated Height/Weight/BMI: Height 1.63 m Weight 101.2 kg Body Mass Index 38.2 Results - Labs CBC & Chem 7: 01/25/18 06:11 01/25/18 06:11 Labs: Liver enzymes normal Accu-Cheks today: [phone] CEA 3.26 Assessment and Plan (1) Colon cancer Current visit: Yes Status: Acute Assessment and Plan: Colon cancer Diabetes mellitus, chronic insulin therapy Hypertension Hyperlipidemia History TIA/L-carotid endarterectomy CRF-stage II Patient is typically on 2 shots daily of Novolin 70/30; until oral intake resumed will monitor blood sugars every 6 hours with corrective insulin. May require resumption of basal insulin in the next 24 hours. Home medications for hypertension and depressive disorders resumed. Resume pravastatin tomorrow. Discussed with surgery earlier today. Outpatient records reviewed. DVT Prophylaxis: Lovenox GI Prophylaxis: Protonix Resuscitation Status: Full Code - Physician Narrative Narrative: Date: 01/25/18 Time: 1728 Hospital Course Summary Disclaimer: The visit summary below is not to be considered part of the above Progress Note.
--- NOTE | 2018-01-25 17:40 | Anesthesia Postoperative Note ---
- Date and Time Date: 01/25/18 Time: 17:39 - Status Patient Participated in Evaluation: Patient Participated in Person Vital Signs: Temperature 98.3 F 01/25/18 16:02 Pulse Rate 86 01/25/18 16:00 Respiratory Rate 22 01/25/18 16:00 Blood Pressure 156/67 H 01/25/18 16:00 Pulse Oximetry 96 01/25/18 16:00 Respiratory Function: Airway Patent Cardiovascular Function: Regular Pulse Mental Status: Alert and Oriented Pain Intensity: 3 Hydration: Taking PO Fluids Complications During Recover: None Apparent - Follow-Up Instructions Instructions: Per Surgeon
[2018-01-25] MEDS ORDERED: INSULIN ASPART 100unit/ml INJECTION SQ PRN (17:53)
[2018-01-25] MEDS: MORPHINE SULFATE 4mg INJECTION IVP PRN (18:06)
[2018-01-25] MEDS: NS with KCL 20 mEq 1,000 ML IV SCH (20:56)
[2018-01-26] MEDS ORDERED: ALBUTEROL 2.5mg/3ml (0.083%) NEB AEROSOL PRN (00:05)
[2018-01-26] MEDS: NS with KCL 20 mEq 1,000 ML IV SCH ×2 (06:12→16:35)
[2018-01-26] MEDS: KETOROLAC 15 MG/ML INJECTION IVP PRN ×2 (06:12→17:07)
[2018-01-26] MEDS: MORPHINE SULFATE 4mg INJECTION IVP PRN (08:31)
[2018-01-26] MEDS: LISINOPRIL 5 MG TABLET PO SCH (08:37)
[2018-01-26] MEDS: ENOXAPARIN 40 MG/0.4 ML INJECTION SQ SCH (08:37)
[2018-01-26] MEDS: PANTOPRAZOLE 40 MG INJECTION IVP SCH (08:37)
[2018-01-26] MEDS: Venlaflaxine XR 75 MG CAPSULE (24hr) PO SCH (08:40)
[2018-01-26] MEDS: ALLOPURINOL 300 MG TABLET PO SCH (09:23)
--- NOTE | 2018-01-26 10:33 | Operative Note ---
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 PROCEDURE Low anterior resection with coloproctostomy. ANESTHESIA General endotracheal. EBL AND FLUIDS Please see chart. BRIEF HISTORY/INDICATIONS Mrs. Hall is an 82-year-old female who recently underwent a colonoscopy by her primary care physician and was found to have a suspicious mass at 25 cm from the anal verge that was biopsied and returned as that of an invasive colonic adenocarcinoma. The patient also was found to have multiple polyps, one of which was not able to be removed in its entirety endoscopically. Earlier today the patient did undergo a repeat colonoscopy and fortunately the sessile polyp that still persisted within the proximal ascending colon was able to be removed endoscopically. It was recommended to the patient that she undergo resection of her known malignancy. The patient did undergo a preop metastatic workup that did not reveal any evidence for metastatic disease. For completeness please refer to notes included in the patient's chart. FINDINGS Upon laparotomy the liver edge was smooth without nodularities. The gallbladder was normal in its appearance. Small bowel was run from the ligament of Treitz to the terminal ileum and was found to be within normal limits. Colon was palpated throughout and was without noted abnormalities with the exception of the known malignancy at 25 cm from the anal verge. This area was tattooed endoscopically and could clearly be visualized. A standard sigmoid resection/low anterior resection with coloproctostomy was completed without incident. DESCRIPTION OF PROCEDURE After informed consent was obtained, the patient was brought to the operative suite and placed on the table in a supine fashion. Abdomen was then prepped and draped in sterile fashion. Formal time-out was then completed. A standard midline incision was then made from above the umbilicus down to the suprapubic region. Midline incision was then opened to the extent of the incision down to the underlying fascia. The fascia of peritoneum was opened to the extent of the incision. The abdominal cavity was explored. Findings were as noted above. Liver edge was smooth without nodularities. Gallbladder was without noted abnormalities. Stomach was visualized and was without palpable or visible abnormalities. Colon was palpated throughout and was within normal limits with the exception of the known malignancy at 25 cm from the anal verge. One could see the spot dye within the serosal surface of the colon at this location. This area had been previously endoscopically tattooed. Once a formal abdominal exploration was undertaken, a Bookwalter retractor was placed to provide adequate exposure. White line of Toldt was then incised along the left pericolic gutter and the sigmoid colon was then reflected medially. One could see the gonadal vessels. Just medial to the gonadal vessels one could see the left ureter as it coursed up and over the iliac vessels. Left ureter was preserved in its entirety. Next, a point about 15 cm proximal to the known malignancy was ascertained upon the mid sigmoid colon region. A mesenteric opening was then created at this location adjacent to the colon. A GI-75 stapler was then placed across the colon at this location and fired. Next, the mesentery was then sequentially divided between right angle clamps down to the sacral promontory. Again, the left ureter was kept under clear visualization as the mesentery was being divided adjacent to the sacral promontory. Presacral space was then entered. A [employer] retractor was utilized and the presacral space was then opened with electrocautery along the curvature of the sacrum. The peritoneum was then incised along the edges of the mesorectum. Care was taken to make sure that the right mesocolon was incised far enough medially that the right ureter would not be injured. Mesorectum was then continued to be divided 10-15 cm beyond the area of tattooing just beneath the peritoneal reflection. A mesenteric opening was then created upon the proximal rectum just beneath the peritoneal reflection. A contour stapler was then placed across the rectum at this location and fired. There was still some minimal amount mesorectum remaining which was sequentially divided between right angle clamps and ligated with 0 Vicryl ties. The sigmoid colon and proximal rectum was then passed off the table as a surgical specimen. Prior areas of dissection were inspected and found to be hemostatic in nature. Left ureter was again identified and remained to be intact. White line of Toldt was then continued be incised up towards the splenic flexure region. The splenic flexure did not require complete mobilization and the proximal staple line was able to be brought forth into the pelvis and laid against the distal staple line without any difficulty. Next, attention was then focused to the proximal staple line. Two Allis clamps placed upon the staple line and retracted anteriorly. Staple line was then transected with curved Gould scissors. The transected end of the colon bled fairly briskly indicative of adequate blood supply. Three Allis clamps were then placed upon the transected end of the colon in a triangulated fashion. A 28 mm EEA sizer was able to be advanced into the transected end of the colon without difficulty. A 29-mm EEA stapler was then obtained. The anvil portion of the stapler was placed within the transected end of the colon. The transected end of the colon was then closed in a pursestring fashion with 2-0 Prolene. Pursestring suture then tied securely resulting in nice imbrication of the colonic mucosa against the anvil portion of the stapler. Next, I had my assistant mechanic then place the EEA stapler through the anal verge and advance it up to the distal staple line. The trocar portion of the stapler was allowed to exit just anterior to the staple line involving the rectum. Anvil was then attached the trocar portion and tightened to the appropriate tension and fired. Care was taken to make sure that the remaining descending colon had not been "twisted" upon itself. Stapler was then loosened and withdrawn through the anal verge. I then grasped the colon distal to the anastomosis and had my assistant mechanic place a rigid proctoscope through the anal verge once the stapler had been removed. Saline was then placed within the pelvis and air was inflated into the rectum until the anastomosis was taut. One could see a few very small air bubbles coming forth from the left lateral aspect of the staple line. The irrigant that had been placed within the pelvis was then suctioned. Four to five single interrupted sutures of a 3-0 Vicryl were then placed in a Lembert fashion at the site were one could see a few small bubbles. Each suture was then tied sequentially. Saline was then replaced within the pelvis until the anastomosis was once again under water. A rigid proctoscope was then reinserted into the anal verge and the rectum was insufflated until the anastomosis was quite taut. At this time no air could be seen exiting from the staple line. Air was passing adjacent to the rigid proctoscope at the anal verge at this time. Rigid proctoscope was then removed and the air from the rectum was released. Saline was then suctioned from the pelvis. Prior areas of dissection were inspected and found to be hemostatic in nature. Instrument, sponge and needle counts were performed and found to be correct. Attention was then directed towards closure. New gowns and gloves and instruments were obtained. Fascia was closed in a running fashion with #1 PDS suture. The subcutaneous tissue was then irrigated with Betadine solution. Skin was then closed with mahsa. The patient was awakened from her anesthetic and sent back to the recovery room once deemed in stable condition. Additionally, it should be noted that Mic Tao APRN, was present throughout the entire case and played a pivotal role in providing assistance and exposure during the course of the procedure. HERBER
--- NOTE | 2018-01-26 11:44 | Progress Note ---
- Date 01/26/18 Subjective: Mrs. Hall reports that she got a little sleep overnight but continues to have abdominal pain. She's had no flatus but denies nausea this morning. She denied dyspnea, pleuritic pain, palpitations. She has a minor sore throat. Urine output has improved this morning after being borderline overnight. Objective Vital signs: Temperature 99.3 F 01/26/18 08:00 Pulse Rate 101 H 01/26/18 09:00 Respiratory Rate 23 01/26/18 09:00 Blood Pressure 134/66 01/26/18 09:00 Pulse Oximetry 93 -3 L 01/26/18 09:00 I/O 5123/1020 NAD, alert Conjunctiva clear, sclera anicteric, oropharynx clear Respirations nonlabored, good airflow, breath sounds clear anteriorly Regular rhythm, S1-S2, low-grade tachycardia at time of evaluation Abdomen soft, nontender to light palpation, no bowel sounds appreciated this morning Extremities without edema MAEW Rhythm: Normal Sinus Rhythm, Sinus Tachycardia Height/Weight/BMI: Height 1.63 m Weight 103 kg Body Mass Index 38.2 Results - Labs CBC & Chem 7: 01/26/18 04:29 01/26/18 04:29 Labs: Accu-Cheks overnight [id number] Assessment and Plan (1) Colon cancer Current visit: Yes Status: Acute Assessment and Plan: Impression: Colon cancer Diabetes mellitus, chronic insulin therapy Hypertension Hyperlipidemia History TIA/L-carotid endarterectomy CRF-stage II Plan: Medically stable, blood pressure/blood sugars well controlled at present. Anticipate discontinuation of Curry catheter in the next 24 hours. Continue to monitor blood sugars every 6 hours, if begin to trend upward will resume basal insulin. Resume pravastatin this evening. DVT Prophylaxis: Lovenox GI Prophylaxis: Protonix Resuscitation Status: Full Code - Physician Narrative Narrative: Date: 01/26/18 Time: 1141 Hospital Course Summary Disclaimer: The visit summary below is not to be considered part of the above Progress Note.
--- NOTE | 2018-01-26 16:05 | General Surgery Progress Note ---
Subjective Narrative: I saw Thu earlier this morning, she was awake, in bed. States she slept fair during the night. Pain controlled with FRATERNITY ADVISER. Denied nausea, chest pain SOA. There was about 50 ml clear yellow urine in Curry at the time of my visit. - Vital Signs Last Vital Signs Temp 99.3 F 01/26/18 08:00 Pulse 101 H 01/26/18 09:00 Resp 23 01/26/18 09:00 BP 134/66 01/26/18 09:00 Pulse Ox 93 01/26/18 09:00 - Laboratory Result Diagrams: 01/26/18 04:29 01/26/18 04:29 - Abnormal Exam Abdominal: hypoactive bowel sounds (very very rare) - Normal Exam General: awake, alert, oriented Cardiovascular: regular rate Respiratory: equal bilaterally, no labored breathing Abdominal: soft, appropriately tender, incision(s) (Dressings dry, not removed/) Psychiatric: normal affect Assessment and Plan (1) Colon cancer Current Visit: Yes Status: Acute Qualifiers: Colon location: sigmoid Qualified Code(s): C18.7 - Malignant neoplasm of sigmoid colon (2) Obesity (BMI 35.0-39.9 without comorbidity) Current Visit: No Status: Acute (3) Essential (primary) hypertension Current Visit: No Status: Chronic Problem details: Well controlled. Resume Metoprolol Tartrate 50mg BID & Lisinopril 5mg Daily. 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 Plan: POD #1 Open sigmoid resection with Primary Anastomosis Doing well for POD #1, VSS urine output good. Labs stable, WBC 8.5 and HGB 12.6 Minimal bowel sounds, stay with sips and chips for now, hopefully advance to clears later today. Thank you Hospitalist team for medical management! Hospital Course Summary Disclaimer: The visit summary below is not to be considered part of the above Progress Note. Hospital Course: 01/25 Colonoscopy with snare polypectomy of adenomatous polyp at the cecum in early am. Then open sigmoid resection for colon cancer mid afternoon. Transferred to CCU post op. 3/22 POD #1 Open sigmoid resection with Primary Anastomosis Doing well for POD #1, VSS urine output good. Labs stable, WBC 8.5 and HGB 12.6 Medically stable, blood pressure/blood sugars well controlled at present. Anticipate discontinuation of Curry catheter in the next 24 hours. Continue to monitor blood sugars every 6 hours, if begin to trend upward will resume basal insulin. Resume pravastatin this evening.
[2018-01-26] MEDS ORDERED: CALCIUM CARBONATE Chewable 750mg TABLET PO PRN (17:12)
[2018-01-26] MEDS: PRAVASTATIN 40 MG TABLET PO SCH (20:00)
[2018-01-26] MEDS: RANITIDINE 150 MG TABLET PO SCH (20:00)
--- NOTE | 2018-01-26 21:31 | Operative Note ---
DATE OF SERVICE 01/26/2018 FINDINGS Mrs. Hall was seen earlier today on rounds. She was complaining of incisional discomfort but stated that the incisional pain was improved from last evening. PHYSICAL EXAM VITAL SIGNS: Afebrile, normotensive. Please refer to EMR. CHEST: Clear to auscultation bilaterally. HEART: Regular rate and rhythm. Normal S1 and S2 without gallops, murmurs or clicks. ABDOMEN: Visualization of the abdomen reveals her dressing to be intact and dry without any evidence for significant bleeding. Palpation of the abdomen did reveal some moderate incisional tenderness as one would expect. No evidence for guarding or rebound. LABORATORY/RADIOGRAPHIC EVALUATION The patient had a CBC and BMP today were unremarkable. ASSESSMENT 82-year-old female status post sigmoid/low anterior resection secondary to invasive adenocarcinoma. Patient currently doing well. PLAN Will continue with current care at this time. Will keep in ICU today and likely move out tomorrow. Will place the patient on clear liquids and tomorrow likely advance to full liquids. HERBER
[2018-01-27] MEDS: MORPHINE PCA 30 MG/30 ML SYRINGE IV PRN (02:28)
[2018-01-27] MEDS: NS with KCL 20 mEq 1,000 ML IV SCH ×3 (02:55→22:28)
[2018-01-27] MEDS: LISINOPRIL 5 MG TABLET PO SCH (08:07)
[2018-01-27] MEDS: ALLOPURINOL 300 MG TABLET PO SCH (08:08)
[2018-01-27] MEDS: ENOXAPARIN 40 MG/0.4 ML INJECTION SQ SCH (08:08)
[2018-01-27] MEDS: KETOROLAC 15 MG/ML INJECTION IVP PRN ×2 (08:08→21:46)
[2018-01-27] MEDS: Venlaflaxine XR 75 MG CAPSULE (24hr) PO SCH (08:08)
[2018-01-27] MEDS: PANTOPRAZOLE 40 MG INJECTION IVP SCH (08:08)
--- NOTE | 2018-01-27 08:49 | General Surgery Progress Note ---
Subjective Patient reports: feels better, pain is less, no flatus, no bowel movement Narrative: States binder is helpful for discomfort. Urine output is > 100ml/hr. She is on clear liquids, denies nausea, no flatus. States she slept well. - Vital Signs Last Vital Signs Temp 99.1 F 01/27/18 07:01 Pulse 95 01/27/18 07:45 Resp 34 H 01/27/18 07:01 BP 159/72 H 01/27/18 07:01 Pulse Ox 92 01/27/18 07:01 - Laboratory Result Diagrams: 01/27/18 04:47 01/27/18 04:47 - Normal Exam General: awake, alert, oriented Respiratory: clear bilaterally, no labored breathing Abdominal: BS normo active x4, soft, appropriately tender, incision(s) ( dressings in tact, I did not remove them today.) Assessment and Plan (1) Colon cancer Current Visit: Yes Status: Acute Qualifiers: Colon location: sigmoid Qualified Code(s): C18.7 - Malignant neoplasm of sigmoid colon (2) Obesity (BMI 35.0-39.9 without comorbidity) Current Visit: No Status: Acute (3) Essential (primary) hypertension Current Visit: No Status: Chronic Problem details: Well controlled. Resume Metoprolol Tartrate 50mg BID & Lisinopril 5mg Daily. 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 Plan: Doing well for POD #2. Good bowel sounds no flatus, continue clears for now, consider full liquids by evening if no nausea. Encourage ambulation, will order PT/OT. VSS, labs are ok. Urine output > 100/hr, will DC rios. Consider transfer to surgical floor. Hospital Course Summary Disclaimer: The visit summary below is not to be considered part of the above Progress Note. Hospital Course: 01/25 Colonoscopy with snare polypectomy of adenomatous polyp at the cecum in early am. Then open sigmoid resection for colon cancer mid afternoon. Transferred to CCU post op. 3/22 POD #1 Open sigmoid resection with Primary Anastomosis Doing well for POD #1, VSS urine output good. Labs stable, WBC 8.5 and HGB 12.6 Medically stable, blood pressure/blood sugars well controlled at present. Anticipate discontinuation of Rios catheter in the next 24 hours. Continue to monitor blood sugars every 6 hours, if begin to trend upward will resume basal insulin. Resume pravastatin this evening. 01/27 Doing well for POD #2. Good bowel sounds, no flatus, continue clears for now, consider full liquids by evening if no nausea. Encourage ambulation, will order PT/OT. VSS, labs are ok. Urine output > 100/hr, will DC rios.
--- NOTE | 2018-01-27 14:03 | Progress Note ---
- Date 01/27/18 Subjective: Dyana reports that she is doing well. She is tolerating small volumes of liquids orally and taking medications orally without difficulty. She's no longer having any pleuritic pain and she denies dyspnea or cough. She's had no flatus but denies nausea. She has minor abdominal pain, primarily with specific movements. She denied lightheadedness and has been walking short distances primarily in the room. Objective Vital signs: Temperature 97.0 F 01/27/18 13:53 Pulse Rate 101 H 01/27/18 13:53 Respiratory Rate 18 01/27/18 13:53 Blood Pressure 121/67 01/27/18 13:53 Pulse Oximetry 90 01/27/18 13:53 Blood pressure transiently elevated early this morning with readings of 182/76 to 217/111 NAD, alert; moves from chair to bed with minimal assistance Sclera anicteric, facial structure symmetric Respirations nonlabored, good airflow, breath sounds clear Regular rhythm, S1 and S2 Abdomen soft, sparse bowel sounds, nontender to light palpation Trace bilateral lower extremity edema Rhythm: Normal Sinus Rhythm Height/Weight/BMI: Height 1.63 m Weight 104.4 kg Body Mass Index 38.2 Results - Labs CBC & Chem 7: 01/27/18 04:47 01/27/18 04:47 Labs: Accu-Cheks 129-156 over the past 24 hours Assessment and Plan (1) Colon cancer Current visit: Yes Status: Acute Assessment and Plan: Impression: Colon cancer Diabetes mellitus, chronic insulin therapy Hypertension Hyperlipidemia History TIA/L-carotid endarterectomy CRF-stage II Blood loss anemia Plan: Transient hypertension this morning, on usual home medications. Increase lisinopril to 10 mg daily. Additional 5 mg to be given today. Low-grade temperature reported overnight-100.5 at midnight. White count unremarkable and lungs clear. Discontinue Rios/increase activity. Advanced to full liquid diet-typically on Novolin 70/30 50 units with breakfast , 30 units with supper; monitor intake today but anticipate need to resume insulins tomorrow at lower doses. Minor drop in hemoglobin-no interventions needed. Pathology pending. Convert to oral PPI. H2 ian resumed yesterday per patient request. DVT Prophylaxis: Lovenox GI Prophylaxis: Protonix Resuscitation Status: Full Code - Physician Narrative Narrative: Date: 03/23/18 Time: 1359 Hospital Course Summary Disclaimer: The visit summary below is not to be considered part of the above Progress Note. Hospital Course: 01/25 Colonoscopy with snare polypectomy of adenomatous polyp at the cecum in early am. Then open sigmoid resection for colon cancer mid afternoon. Transferred to CCU post op. 01/26 POD #1 Open sigmoid resection with Primary Anastomosis Doing well for POD #1, VSS urine output good. Labs stable, WBC 8.5 and HGB 12.6 Medically stable, blood pressure/blood sugars well controlled at present. Anticipate discontinuation of Rios catheter in the next 24 hours. Continue to monitor blood sugars every 6 hours, if begin to trend upward will resume basal insulin. Resume pravastatin this evening. 01/27 Doing well for POD #2. Good bowel sounds, no flatus, continue clears for now, consider full liquids by evening if no nausea. Encourage ambulation, will order PT/OT. VSS, labs are ok. Urine output > 100/hr, will DC rios.
[2018-01-27] MEDS ORDERED: LISINOPRIL 5 MG TABLET PO ONE (14:09)
--- NOTE | 2018-01-27 17:48 | Progress Note ---
DATE OF SERVICE 01/27/2018 FINDINGS The patient was seen earlier today on rounds. Mrs. Hall was doing quite well. She states that she was having less discomfort. She was tolerating clear liquids. PHYSICAL EXAM VITAL SIGNS: Afebrile, normotensive. Please refer to EMR. CHEST: Clear to auscultation bilaterally. HEART: Regular rate and rhythm. Normal S1 and S2 without gallops, murmurs or clicks. ABDOMEN: Palpation of the abdomen reveals it to be soft with only minimal incisional tenderness being present. No evidence for guarding or rebound. LABORATORY/RADIOGRAPHIC EVALUATION The patient had a CBC today and her hemoglobin has drifted down slightly at 10.4 but overall remains stable. White count 8.7. BMP obtained and found to be without marked abnormalities. ASSESSMENT 89-year-old female status post low anterior resection. Patient currently doing well. PLAN Transfer to surgical floor. Will slowly begin to advance diet to full liquids. Otherwise, continue with current care. HERBER
[2018-01-27] MEDS: RANITIDINE 150 MG TABLET PO SCH (21:36)
[2018-01-27] MEDS: PRAVASTATIN 40 MG TABLET PO SCH (21:37)
[2018-01-28] MEDS: PANTOPRAZOLE 40 MG TABLET PO SCH (05:55)
[2018-01-28] MEDS: ENOXAPARIN 40 MG/0.4 ML INJECTION SQ SCH (09:15)
[2018-01-28] MEDS: KETOROLAC 15 MG/ML INJECTION IVP PRN ×2 (09:15→22:21)
[2018-01-28] MEDS: NS with KCL 20 mEq 1,000 ML IV SCH ×2 (09:15→12:05)
[2018-01-28] MEDS: Venlaflaxine XR 75 MG CAPSULE (24hr) PO SCH (09:16)
[2018-01-28] MEDS: LISINOPRIL 10 MG TABLET PO SCH (09:16)
[2018-01-28] MEDS: ALLOPURINOL 300 MG TABLET PO SCH (09:16)
--- NOTE | 2018-01-28 12:16 | Progress Note ---
DATE OF SERVICE 01/28/2018 FINDINGS Mrs. Hall was in good spirits this morning. States that she has been passing a fair amount of flatus. Denied significant abdominal pain. She has been able to get up and out of bed by herself per her report. EXAM VITAL SIGNS: Afebrile, normotensive. ABDOMEN: Soft, nontender. Incision is clean, dry, and intact. LABORATORY/RADIOGRAPHIC EVALUATION The patient had a CBC today that was unremarkable. White count remains stable at 7.5. Hemoglobin overall stable at 9.7. BMP obtained and found to be without marked abnormalities. ASSESSMENT 82-year-old female status post low anterior resection secondary to invasive adenocarcinoma. Patient doing well. PLAN Will go and advance diet as tolerated. Will DC IV fluids. The patient is making good progress. Will likely be able to be discharged to home on Tuesday. HERBER
--- NOTE | 2018-01-28 13:28 | Progress Note ---
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 Has not passed gas or had a BM yet. Tolerating clear liquids, hesitant to do full liquids. Objective Vital signs: Temperature 97.0 F 01/28/18 08:26 Pulse Rate 98 01/28/18 08:26 Respiratory Rate 18 01/28/18 12:00 Blood Pressure 163/85 H 01/28/18 08:26 Pulse Oximetry 98 01/28/18 08:26 Rhythm: Normal Sinus Rhythm Height/Weight/BMI: Height 5 ft 4 in Weight 105.5 kg Body Mass Index 38.2 - Constitutional Present: no acute distress - Routine Respiratory Exam Present: CTA bilaterally - Routine Cardiovascular Exam Present: RRR - Routine Abdominal Exam Present: soft Comments: mildly TTP diffusely, ND, decreased BS, abdominal binder in place. - Routine Extremities Exam Present: no edema - Routine Skin Exam Comments: surgical incision clean and dry - Routine Neurological Exam Present: alert, oriented X3, CN II-XII intact - Routine Psychiatric Exam Present: normal affect Results - Labs CBC & Chem 7: 01/28/18 04:16 01/28/18 04:16 Assessment and Plan (1) Colon cancer Current visit: Yes Status: Acute Assessment and Plan: Impression: Colon cancer Diabetes mellitus, chronic insulin therapy Hypertension Hyperlipidemia History TIA/L-carotid endarterectomy CRF-stage II Blood loss anemia Plan: Lisinopril increased to 10mg yesterday with pressures still in 150's an 160's - add agent if remains high Afebile overnight, rios removed Tolerating liquid diet Advanced to full liquid diet-typically on Novolin 70/30 50 units with breakfast , 30 units with supper; monitor intake today but anticipate need to resume insulins soon at lower doses. Post-op anemia without obvious signs of blood loss, also likely dilutional. Pathology pending. on PPI and zantac. - Physician Narrative Narrative: Date: 01/28/18 Time: 1322 Hospital Course Summary Disclaimer: The visit summary below is not to be considered part of the above Progress Note. Hospital Course: 01/25 Colonoscopy with snare polypectomy of adenomatous polyp at the cecum in early am. Then open sigmoid resection for colon cancer mid afternoon. Transferred to CCU post op. 01/26 POD #1 Open sigmoid resection with Primary Anastomosis Doing well for POD #1, VSS urine output good. Labs stable, WBC 8.5 and HGB 12.6 Medically stable, blood pressure/blood sugars well controlled at present. Anticipate discontinuation of Rios catheter in the next 24 hours. Continue to monitor blood sugars every 6 hours, if begin to trend upward will resume basal insulin. Resume pravastatin this evening. 01/27 Doing well for POD #2. Good bowel sounds, no flatus, continue clears for now, consider full liquids by evening if no nausea. Encourage ambulation, will order PT/OT. VSS, labs are ok. Urine output > 100/hr, will DC rios. 01/28 Lisinopril increased to 10mg yesterday with pressures still in 150's an 160's - add agent if remains high Afebile overnight, rios removed Tolerating liquid diet Advanced to full liquid diet-typically on Novolin 70/30 50 units with breakfast , 30 units with supper; monitor intake today but anticipate need to resume insulins soon at lower doses. Post-op anemia without obvious signs of blood loss, also likely dilutional. Pathology pending. on PPI and zantac.
[2018-01-28] MEDS: PRAVASTATIN 40 MG TABLET PO SCH (20:53)
[2018-01-28] MEDS: RANITIDINE 150 MG TABLET PO SCH (20:53)
[2018-01-29] MEDS: NS with KCL 20 mEq 1,000 ML IV SCH ×2 (04:16→08:36)
[2018-01-29] MEDS: PANTOPRAZOLE 40 MG TABLET PO SCH (06:36)
[2018-01-29] MEDS: ENOXAPARIN 40 MG/0.4 ML INJECTION SQ SCH (08:37)
[2018-01-29] MEDS: Venlaflaxine XR 75 MG CAPSULE (24hr) PO SCH (08:37)
[2018-01-29] MEDS: ALLOPURINOL 300 MG TABLET PO SCH (08:37)
[2018-01-29] MEDS: LISINOPRIL 10 MG TABLET PO SCH (08:37)
--- NOTE | 2018-01-29 10:41 | Progress Note ---
- Date 01/29/18 Subjective: Thu is up in the chair eating eggs and toast. She had a sandwich last night and says her stomach cramped, but overall she did well. No BM yet. Pain controlled on lumber sticker. She did have a fever this morning of 99.7. Objective Vital signs: Temperature 96.2 F L 01/29/18 07:22 Pulse Rate 96 01/29/18 07:22 Respiratory Rate 20 01/29/18 07:29 Blood Pressure 189/73 H 01/29/18 07:22 Pulse Oximetry 95 01/29/18 07:22 Rhythm: Normal Sinus Rhythm Height/Weight/BMI: Height 5 ft 4 in Weight 104.1 kg Body Mass Index 38.2 - Constitutional Present: no acute distress - Routine Respiratory Exam Present: CTA bilaterally - Routine Cardiovascular Exam Present: RRR - Routine Abdominal Exam Comments: soft, mildly TTP diffusely, ND, decreased BS, no r/r/g. - Routine Extremities Exam Present: no edema - Routine Skin Exam Comments: surgical incision clean and dry - Routine Neurological Exam Present: alert, oriented X3, CN II-XII intact - Routine Psychiatric Exam Present: normal affect Results - Labs CBC & Chem 7: 01/29/18 04:33 01/29/18 04:33 Assessment and Plan (1) Colon cancer Current visit: Yes Status: Acute Assessment and Plan: Impression: Colon cancer Diabetes mellitus, chronic insulin therapy Hypertension Hyperlipidemia History TIA/L-carotid endarterectomy CRF-stage II Blood loss anemia Plan: Lisinopril increased to 10mg 01/27 - had pressure in 180's this morning, may correlate with pain of getting up this morning. Monitor through the morning to titrate meds. Febrile this morning - UA negative, check CXR today. Tolerating diet. Typically on Novolin 70/30 50 units with breakfast, 30 units with supper; monitor intake and sugar through the day to restart if needed. On ISS now. Post-op anemia stable. on PPI and zantac. Wean of HOP WEIGHER per surgery. - Physician Narrative Narrative: Date: 01/29/18 Time: 1031 Hospital Course Summary Disclaimer: The visit summary below is not to be considered part of the above Progress Note. Hospital Course: 01/25 Colonoscopy with snare polypectomy of adenomatous polyp at the cecum in early am. Then open sigmoid resection for colon cancer mid afternoon. Transferred to CCU post op. 01/26 POD #1 Open sigmoid resection with Primary Anastomosis Doing well for POD #1, VSS urine output good. Labs stable, WBC 8.5 and HGB 12.6 Medically stable, blood pressure/blood sugars well controlled at present. Anticipate discontinuation of Rios catheter in the next 24 hours. Continue to monitor blood sugars every 6 hours, if begin to trend upward will resume basal insulin. Resume pravastatin this evening. 01/27 Doing well for POD #2. Good bowel sounds, no flatus, continue clears for now, consider full liquids by evening if no nausea. Encourage ambulation, will order PT/OT. VSS, labs are ok. Urine output > 100/hr, will DC rios. 01/28 Lisinopril increased to 10mg yesterday with pressures still in 150's an 160's - add agent if remains high Afebile overnight, rios removed Tolerating liquid diet Advanced to full liquid diet-typically on Novolin 70/30 50 units with breakfast , 30 units with supper; monitor intake today but anticipate need to resume insulins soon at lower doses. Post-op anemia without obvious signs of blood loss, also likely dilutional. Pathology pending. on PPI and zantac. 01/29 Lisinopril increased to 10mg 01/27 - had pressure in 180's this morning, may correlate with pain of getting up this morning. Monitor through the morning to titrate meds. Febrile this morning - UA negative, check CXR today. Tolerating diet. Typically on Novolin 70/30 50 units with breakfast, 30 units with supper; monitor intake and sugar through the day to restart if needed. On ISS now. Post-op anemia stable. on PPI and zantac. Wean off HOP WEIGHER per surgery.
[2018-01-29] MEDS: PRAVASTATIN 40 MG TABLET PO SCH (20:33)
[2018-01-29] MEDS: RANITIDINE 150 MG TABLET PO SCH (20:33)
[2018-01-30] MEDS: NS with KCL 20 mEq 1,000 ML IV SCH ×2 (00:49→03:45)
[2018-01-30] MEDS: PANTOPRAZOLE 40 MG TABLET PO SCH (05:40)
[2018-01-30] MEDS ORDERED: Bisacodyl EC TAB 5 MG TABLET PO ONE (08:34)
[2018-01-30] MEDS: Venlaflaxine XR 75 MG CAPSULE (24hr) PO SCH (08:41)
[2018-01-30] MEDS: ENOXAPARIN 40 MG/0.4 ML INJECTION SQ SCH (08:41)
[2018-01-30] MEDS: LISINOPRIL 10 MG TABLET PO SCH (08:41)
[2018-01-30] MEDS: ALLOPURINOL 300 MG TABLET PO SCH (08:41)
--- NOTE | 2018-01-30 08:41 | General Surgery Progress Note ---
Subjective Patient reports: feels better, pain is less (the binder is helpful, no longer using CARPET INSPECTOR, [place] working will.), tolerating a regular diet, flatus, no bowel movement Narrative: she has been reluctant to get up and walk. PT/OT has been ordered to assist with activity and assess readiness for discharge. - Vital Signs Last Vital Signs Temp 97.9 F 01/30/18 07:31 Pulse 91 01/30/18 07:31 Resp 18 01/30/18 07:31 BP 140/68 H 01/30/18 07:31 Pulse Ox 96 01/30/18 07:31 - Laboratory Result Diagrams: 01/31/18 03:30 01/31/18 03:30 - Normal Exam General: awake, alert Cardiovascular: regular rate Respiratory: no labored breathing Abdominal: soft, appropriately tender (midline incision), incision(s) (midline CDI with mahsa in tact, some ecchymosis mostly in the dependent portion of the panus. No erythema or drainage.) Assessment and Plan (1) Colon cancer Current Visit: Yes Status: Acute Qualifiers: Colon location: sigmoid Qualified Code(s): C18.7 - Malignant neoplasm of sigmoid colon (2) Obesity (BMI 35.0-39.9 without comorbidity) Current Visit: No Status: Acute (3) Essential (primary) hypertension Current Visit: No Status: Chronic Problem details: Well controlled. Resume Metoprolol Tartrate 50mg BID & Lisinopril 5mg Daily. 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 Plan: POD #5 Post open sigmoid resection, colon cancer. Voiding without difficulty. No BM yet but is passing flatus, will give Dulcolax PO with breakfast. Reluctant to ambulate, PT/OT ordered for activity and readiness for discharge. Labs are good. Likely discharge soon if able to have a BM. Hospital Course Summary Disclaimer: The visit summary below is not to be considered part of the above Progress Note. Hospital Course: 01/25 Colonoscopy with snare polypectomy of adenomatous polyp at the cecum in early am. Then open sigmoid resection for colon cancer mid afternoon. Transferred to CCU post op. 01/26 POD #1 Open sigmoid resection with Primary Anastomosis Doing well for POD #1, VSS urine output good. Labs stable, WBC 8.5 and HGB 12.6 Medically stable, blood pressure/blood sugars well controlled at present. Anticipate discontinuation of Rios catheter in the next 24 hours. Continue to monitor blood sugars every 6 hours, if begin to trend upward will resume basal insulin. Resume pravastatin this evening. 01/27 Doing well for POD #2. Good bowel sounds, no flatus, continue clears for now, consider full liquids by evening if no nausea. Encourage ambulation, will order PT/OT. VSS, labs are ok. Urine output > 100/hr, will DC rios. 01/28 Lisinopril increased to 10mg yesterday with pressures still in 150's an 160's - add agent if remains high Afebile overnight, rios removed Tolerating liquid diet Advanced to full liquid diet-typically on Novolin 70/30 50 units with breakfast , 30 units with supper; monitor intake today but anticipate need to resume insulins soon at lower doses. Post-op anemia without obvious signs of blood loss, also likely dilutional. Pathology pending. on PPI and zantac. 01/29 Lisinopril increased to 10mg 01/27 - had pressure in 180's this morning, may correlate with pain of getting up this morning. Monitor through the morning to titrate meds. Febrile this morning - UA negative, check CXR today. Tolerating diet. Typically on Novolin 70/30 50 units with breakfast, 30 units with supper; monitor intake and sugar through the day to restart if needed. On ISS now. Post-op anemia stable. on PPI and zantac. Wean off CARPET INSPECTOR per surgery. 01/30 POD #5 Post open sigmoid resection, colon cancer. Voiding without difficulty. No BM yet but is passing flatus, will give Dulcolax PO with breakfast. Reluctant to ambulate, PT/OT ordered for activity and readiness for discharge. Labs are good. Likely discharge soon if able to have a BM.
--- NOTE | 2018-01-30 08:54 | XRay Report ---
Indication: fever PROCEDURE: XR chest 1V: Encounter: Initial Comparison: 11/11/2017 Findings: There is moderate overlying EKG lead artifact. There is mild prominence of the cardiac silhouette which may be accentuated by the AP portable technique. No definite lobar consolidation or pleural effusion. No pneumothorax. No subdiaphragmatic free air. Impression: Mild prominence of the cardiac silhouette possibly accentuated by the AP portable technique. No definite lobar consolidation or pleural effusion. .
--- NOTE | 2018-01-30 09:09 | Progress Note ---
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 SUBJECTIVE Thu has not been ambulating much. She did report positive flatus. Her pain has been somewhat controlled with the FLIGHT OPERATIONS SPECIALIST. She has not used pain pills. OBJECTIVE VITAL SIGNS: Afebrile with stable vitals on room air. GENERAL: The patient is awake and alert. She is in no acute distress. ABDOMEN: Soft, appropriately tender. Her dressing remains intact. IMPRESSION 82-year-old female status post low anterior resection secondary to invasive adenocarcinoma - appropriate clinical progress. PLAN 1. I encouraged a transition over to oral pain medications since she has tolerated some regular diet. 2. I encouraged ambulation to try to help retain her strength in anticipation of discharge. HERBER
--- NOTE | 2018-01-30 12:10 | Progress Note ---
- Date 01/30/18 Subjective: Patient seen in follow-up this morning after breakfast. She reports she is doing well. She is no longer on the morphine MEDICAL ANTHROPOLOGIST and is doing well with by mouth pain medication. She reports she is passing gas, but has not had a bowel movement yet. She's not having any abdominal discomfort beyond what would be considered normal following surgery. No chest pain or shortness of breath. States she is eating well. Plans to do some walking today. Had a Dulcolax for her bowels this morning. Objective Vital signs: Temperature 97.9 F 01/30/18 07:31 Pulse Rate 91 01/30/18 07:31 Respiratory Rate 18 01/30/18 07:31 Blood Pressure 140/68 H 01/30/18 07:31 Pulse Oximetry 96 01/30/18 07:31 Rhythm: Normal Sinus Rhythm Height/Weight/BMI: Height 1.63 m Weight 102.7 kg Body Mass Index 38.2 - Constitutional Present: no acute distress, well nourished, well developed - Routine HEENT Exam Head: Present: normocephalic, atraumatic - Routine Respiratory Exam Present: CTA bilaterally. Absent: wheezes - Routine Cardiovascular Exam Present: RRR - Routine Abdominal Exam Present: soft, non distended, non tender, wound (incision looks good. No drainage noted. [place] intact.). Absent: normoactive bowel sounds (hypoactive bowel sounds) - Routine Extremities Exam Present: no edema, normal capillary refill - Routine Skin Exam Present: dry, warm - Routine Neurological Exam Present: alert, oriented X3 - Routine Lymphatic Exam Lymphatic: Absent: adenopathy - Routine Psychiatric Exam Present: normal affect, cooperative Results - Labs CBC & Chem 7: 01/30/18 04:02 01/30/18 04:02 Assessment and Plan (1) Colon cancer Current visit: Yes Status: Acute Assessment and Plan: Impression: Colon cancer Diabetes mellitus, chronic insulin therapy Hypertension Hyperlipidemia History TIA/L-carotid endarterectomy CRF-stage II Blood loss anemia Plan: Patient overall doing well. Needs assessed by PT/OT with discharge recommendations. Typically on Novolin 70/30 50 units with breakfast, 30 units with supper; has not required any sliding scale insulin at this point. Continue to watch sugars and resume insulin when needed. Per surgery, may likely be dismissed once her bowels move. Was given Dulcolax this morning. DVT Prophylaxis: SCD's, Lovenox Resuscitation Status: Full Code - Physician Narrative Physician: Cindi Vasquez MD Narrative: Date: 01/30/18 Time: 1514 I have independently evaluated and examined this patient. I reviewed the chart, the patient's history, and the RN RELIEF CHARGE/PA's documented findings as above. We discussed and formulated the assessment and plan as above with additions as below: Mrs. Hall reports minimal pain, good tolerance of a regular diet, presence of flatus but no bowel movement since surgery. She describes taking a long walker earlier today. NAD, alert, abdomen soft, nontender, active bowel sounds. Blood pressure remains modestly elevated-increase lisinopril to 20 mg daily. Blood sugar control stable as described above. Potassium 3.5-borderline, 20 mEq KCl by mouth 1. DC Toradol-day 5. Hospital Course Summary Disclaimer: The visit summary below is not to be considered part of the above Progress Note. Hospital Course: 01/25 Colonoscopy with snare polypectomy of adenomatous polyp at the cecum in early am. Then open sigmoid resection for colon cancer mid afternoon. Transferred to CCU post op. 01/26 POD #1 Open sigmoid resection with Primary Anastomosis Doing well for POD #1, VSS urine output good. Labs stable, WBC 8.5 and HGB 12.6 Medically stable, blood pressure/blood sugars well controlled at present. Anticipate discontinuation of Rios catheter in the next 24 hours. Continue to monitor blood sugars every 6 hours, if begin to trend upward will resume basal insulin. Resume pravastatin this evening. 01/27 Doing well for POD #2. Good bowel sounds, no flatus, continue clears for now, consider full liquids by evening if no nausea. Encourage ambulation, will order PT/OT. VSS, labs are ok. Urine output > 100/hr, will DC rios. 01/28 Lisinopril increased to 10mg yesterday with pressures still in 150's an 160's - add agent if remains high Afebile overnight, rios removed Tolerating liquid diet Advanced to full liquid diet-typically on Novolin 70/30 50 units with breakfast , 30 units with supper; monitor intake today but anticipate need to resume insulins soon at lower doses. Post-op anemia without obvious signs of blood loss, also likely dilutional. Pathology pending. on PPI and zantac. 01/29 Lisinopril increased to 10mg 01/27 - had pressure in 180's this morning, may correlate with pain of getting up this morning. Monitor through the morning to titrate meds. Febrile this morning - UA negative, check CXR today. Tolerating diet. Typically on Novolin 70/30 50 units with breakfast, 30 units with supper; monitor intake and sugar through the day to restart if needed. On ISS now. Post-op anemia stable. on PPI and zantac. Wean off MEDICAL ANTHROPOLOGIST per surgery.
--- NOTE | 2018-01-30 14:50 | Progress Note ---
DATE 01/30/2018 FINDINGS Mrs. Hall was without complaints today. She apparently had walked down to the rehab facility and back without any difficulty. She has been tolerating a regular diet. She has not had BM but has been passing flatus. VITALS: Afebrile. Normotensive. ABDOMEN: Soft, nontender. Incision clean, dry and intact. LABORATORY/RADIOGRAPH EVALUATION The patient had a CBC today and her white count continues on a downward trend at 6.2. Hemoglobin stable at 10.3. BMP obtained and found to be without marked abnormalities. ASSESSMENT 82-year-old female status post low anterior resection secondary to invasive adenocarcinoma. Patient doing well. PLAN The patient has been given some Dulcolax today to facilitate bowel movement. If the patient does have a bowel movement today, I do believe that she could likely be discharged this afternoon. I am quite pleased with the patient's progress at this time. HERBER
[2018-01-30] MEDS ORDERED: LISINOPRIL 10 MG TABLET PO ONE (15:32)
[2018-01-30] MEDS: PRAVASTATIN 40 MG TABLET PO SCH (20:43)
[2018-01-30] MEDS: RANITIDINE 150 MG TABLET PO SCH (20:43)
[2018-01-31] MEDS: PANTOPRAZOLE 40 MG TABLET PO SCH (06:00)
[2018-01-31] MEDS ORDERED: Venlaflaxine XR 75 MG CAPSULE (24hr) PO SCH (08:00)
--- NOTE | 2018-01-31 08:02 | General Surgery Progress Note ---
Subjective Patient reports: pain is less, tolerating a regular diet, voiding w/o difficulty , flatus, no bowel movement (even after Dulcolax 10 PO and "Brown Cow". She states she does not "go" daily at home and that fruit will sometimes help.) Narrative: She states she is ambulating now. would like to go home, but has not had BM since surgery. - Vital Signs Last Vital Signs Temp 97.3 F 01/31/18 04:00 Pulse 84 01/31/18 04:00 Resp 16 01/31/18 04:00 BP 160/77 H 01/31/18 04:00 Pulse Ox 96 01/31/18 04:00 - Laboratory Result Diagrams: 01/31/18 03:30 01/31/18 03:30 - Abnormal Exam Respiratory: wheezes (late exporatory) Abdominal: obese - Normal Exam General: awake, alert, oriented, no acute distress Cardiovascular: regular rate Respiratory: no labored breathing Abdominal: BS normo active x4, appropriately tender (midline incisional), no guarding Psychiatric: normal affect Assessment and Plan (1) Colon cancer Current Visit: Yes Status: Acute Qualifiers: Colon location: sigmoid Qualified Code(s): C18.7 - Malignant neoplasm of sigmoid colon (2) Obesity (BMI 35.0-39.9 without comorbidity) Current Visit: No Status: Acute (3) Essential (primary) hypertension Current Visit: No Status: Chronic Problem details: Well controlled. Resume Metoprolol Tartrate 50mg BID & Lisinopril 5mg Daily. 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 Plan: Would sure like a BM before discharge. We agreed that she would eat fruit for breakfast, have some coffee, walk, and if no BM by noon, will order another laxative. She is otherwise ready for discharge. Pain is well controlled, she likes the binder, last [place] was the 25th and the last morphine was about 2-3 days prior to that. Hospital Course Summary Disclaimer: The visit summary below is not to be considered part of the above Progress Note. Hospital Course: 01/25 Colonoscopy with snare polypectomy of adenomatous polyp at the cecum in early am. Then open sigmoid resection for colon cancer mid afternoon. Transferred to CCU post op. 01/26 POD #1 Open sigmoid resection with Primary Anastomosis Doing well for POD #1, VSS urine output good. Labs stable, WBC 8.5 and HGB 12.6 Medically stable, blood pressure/blood sugars well controlled at present. Anticipate discontinuation of Rios catheter in the next 24 hours. Continue to monitor blood sugars every 6 hours, if begin to trend upward will resume basal insulin. Resume pravastatin this evening. 01/27 Doing well for POD #2. Good bowel sounds, no flatus, continue clears for now, consider full liquids by evening if no nausea. Encourage ambulation, will order PT/OT. VSS, labs are ok. Urine output > 100/hr, will DC rios. 01/28 Lisinopril increased to 10mg yesterday with pressures still in 150's an 160's - add agent if remains high Afebile overnight, rios removed Tolerating liquid diet Advanced to full liquid diet-typically on Novolin 70/30 50 units with breakfast , 30 units with supper; monitor intake today but anticipate need to resume insulins soon at lower doses. Post-op anemia without obvious signs of blood loss, also likely dilutional. Pathology pending. on PPI and zantac. 01/29 Lisinopril increased to 10mg 01/27 - had pressure in 180's this morning, may correlate with pain of getting up this morning. Monitor through the morning to titrate meds. Febrile this morning - UA negative, check CXR today. Tolerating diet. Typically on Novolin 70/30 50 units with breakfast, 30 units with supper; monitor intake and sugar through the day to restart if needed. On ISS now. Post-op anemia stable. on PPI and zantac. Wean off MANAGER ADMINISTRATIVE per surgery.
[2018-01-31] MEDS: ENOXAPARIN 40 MG/0.4 ML INJECTION SQ SCH (08:23)
[2018-01-31] MEDS: ALLOPURINOL 300 MG TABLET PO SCH (08:23)
[2018-01-31] MEDS ORDERED: LISINOPRIL 20 MG TABLET PO SCH (09:00)
--- NOTE | 2018-01-31 10:00 | Progress Note ---
- Date 01/31/18 Subjective: Patient is seen this morning after breakfast. She reports she wants to go home. She has not yet had a bowel movement since surgery. She had a "brown cow" and 10 mg Dulcolax yesterday. She is passing gas. She is starting to feel a bit uncomfortable in her abdomen. She's had another brown cow this morning and has eaten some fruit. She continues to drink fluids and plans to walk later this morning. Objective Vital signs: Temperature 98.2 F 01/31/18 08:00 Pulse Rate 89 01/31/18 08:00 Respiratory Rate 16 01/31/18 08:00 Blood Pressure 145/76 H 01/31/18 08:00 Pulse Oximetry 91 01/31/18 08:00 Rhythm: Normal Sinus Rhythm Height/Weight/BMI: Height 1.63 m Weight 100.5 kg Body Mass Index 38.2 - Constitutional Present: no acute distress, well nourished, well developed - Routine HEENT Exam Head: Present: normocephalic, atraumatic - Routine Respiratory Exam Present: decreased breath sounds, wheezes (slight expiratory wheeze-left lung- not persistent) - Routine Cardiovascular Exam Present: RRR, no murmur - Routine Abdominal Exam Present: soft, normoactive bowel sounds, tenderness (diffuse-mild) Comments: Abdominal binder in place - Routine Extremities Exam Present: edema (trace bilateral lower extremities), normal capillary refill - Routine Skin Exam Present: dry, warm - Routine Neurological Exam Present: alert, oriented X3 - Routine Lymphatic Exam Lymphatic: Absent: adenopathy - Routine Psychiatric Exam Present: normal affect, cooperative Results - Labs CBC & Chem 7: 01/31/18 03:30 01/31/18 03:30 Assessment and Plan (1) Colon cancer Current visit: Yes Status: Acute Assessment and Plan: Impression: Colon cancer- S/P sigmoid resection/low anterior resection with coloproctostomy 01/25/18 (Dr. Hernandez) Diabetes mellitus, chronic insulin therapy Hypertension Hyperlipidemia History TIA/L-carotid endarterectomy CRF-stage II Blood loss anemia-stable Plan: Bowel regimen per surgery. She'll be dismissed once she has a bowel movement. Typically on Novolin 70/30 50 units with breakfast, 30 units with supper; has not required any sliding scale insulin at this point. Blood sugars are averaging 150 without treatment. Continue to watch sugars and resume insulin when needed. Blood pressures improved with increase in lisinopril. - Physician Narrative Physician: Cindi Vasquez MD Narrative: Date: 01/31/18 Time: 1350 I have independently evaluated and examined this patient. I reviewed the chart, the patient's history, and the RESTAURANT SHIFT SUPERVISOR/PA's documented findings as above. We discussed and formulated the assessment and plan as above with additions as below: Patient seen about 20 minutes ago at which time she reported having a bowel movement earlier. Nursing was present and indicated that she will be discharged this afternoon. Patient indicated that her diet at home is significantly different than hospital diet has been and that she anticipates resuming usual home dietary patterns immediately. Patient is alert, speech is fluent; abdomen soft, nontender, bowel sounds present Blood sugars have ranged from 130-157 over the past 24 hours. I recommended patient resume insulin at 1/2 usual dose initially, monitor blood sugars and resume usual dosages when glucose consistently above 150. Discharge home with lisinopril [address] Silva notified of above changes. Hospital Course Summary Disclaimer: The visit summary below is not to be considered part of the above Progress Note. Hospital Course: 01/25 Colonoscopy with snare polypectomy of adenomatous polyp at the cecum in early am. Then open sigmoid resection for colon cancer mid afternoon. Transferred to CCU post op. 01/26 POD #1 Open sigmoid resection with Primary Anastomosis Doing well for POD #1, VSS urine output good. Labs stable, WBC 8.5 and HGB 12.6 Medically stable, blood pressure/blood sugars well controlled at present. Anticipate discontinuation of Rios catheter in the next 24 hours. Continue to monitor blood sugars every 6 hours, if begin to trend upward will resume basal insulin. Resume pravastatin this evening. 01/27 Doing well for POD #2. Good bowel sounds, no flatus, continue clears for now, consider full liquids by evening if no nausea. Encourage ambulation, will order PT/OT. VSS, labs are ok. Urine output > 100/hr, will DC rios. 01/28 Lisinopril increased to 10mg yesterday with pressures still in 150's an 160's - add agent if remains high Afebile overnight, rios removed Tolerating liquid diet Advanced to full liquid diet-typically on Novolin 70/30 50 units with breakfast , 30 units with supper; monitor intake today but anticipate need to resume insulins soon at lower doses. Post-op anemia without obvious signs of blood loss, also likely dilutional. Pathology pending. on PPI and zantac. 01/29 Lisinopril increased to 10mg 01/27 - had pressure in 180's this morning, may correlate with pain of getting up this morning. Monitor through the morning to titrate meds. Febrile this morning - UA negative, check CXR today. Tolerating diet. Typically on Novolin 70/30 50 units with breakfast, 30 units with supper; monitor intake and sugar through the day to restart if needed. On ISS now. Post-op anemia stable. on PPI and zantac. Wean off COPY EDITOR per surgery.
[2018-01-31] MEDS ORDERED: SENNA LIQUID (X-PREP) 74 ML PO ONE (10:18)
[2018-01-31 11:07] VITALS: BP 155/85; PULSE 83; RESP 18; TEMP 96.3; O2SAT 96
--- NOTE | 2018-01-31 13:04 | Discharge Summary ---
Discharge Information Date of admission: 01/25/18 05:53 Attending Physician: Chuck Hernandez MD Primary care physician: Abimael Silva MD Consults: 01/25/18 05:57 Consult to Anesthesiology [CONS] Routine Reason For Exam: preop assessmemt 01/25/18 15:49 Physician Consult [CONS] Routine Consulting Provider: Cindi Vasquez Reason For Exam: DM and medical management Ordering Provider has Notified Composition Teacher: Yes - Discharge Diagnosis (1) Colon cancer Status: Acute (2) Obesity (BMI 35.0-39.9 without comorbidity) Status: Acute (3) Essential (primary) hypertension Status: Chronic (4) Type 2 diabetes mellitus without complications Status: Chronic - Procedures Procedures: DATE OF SERVICE 01/25/2018 AM SURGEON Chuck Hernandez MD PREOPERATIVE DIAGNOSIS Invasive carcinoma at 25 cm from the anal verge. Personal history of adenomatous colon polyps. Sessile polyps/tubulovillous adenoma unable to be removed in its entirety previously involving the ascending colon. POSTOPERATIVE DIAGNOSIS Invasive carcinoma at 25 cm from the anal verge. Personal history of adenomatous colon polyps. 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 PROCEDURE Colonoscopy with endoscopic tattooing of mass at 25 cm from the anal verge, polypectomies via cold biopsy technique and snare polypectomy technique. DATE OF SERVICE 01/25/2018 PM SURGEON Chuck Hernandez MD PROPOSAL SPECIALIST Mic Tao APRN PREOPERATIVE DIAGNOSIS Invasive adenocarcinoma at 25 cm from the anal verge. 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 PROCEDURE Low anterior resection with coloproctostomy. - Laboratory Labs: 01/31/18 03:30 01/31/18 03:30 - Radiology Radiology: Date of Exam: 01/29/18 Ordering Provider: Pretty Cronin DO Type of Exam(s): XR chest 1V Reason for Exam(s): fever Indication: fever PROCEDURE: XR chest 1V: Encounter: Initial Comparison: 11/11/2017 Findings: There is moderate overlying EKG lead artifact. There is mild prominence of the cardiac silhouette which may be accentuated by the AP portable technique. No definite lobar consolidation or pleural effusion. No pneumothorax. No subdiaphragmatic free air. Impression: Mild prominence of the cardiac silhouette possibly accentuated by the AP portable technique. No definite lobar consolidation or pleural effusion. 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 Silva Sigmoid resection: Invasive moderately differentiated adenocarcinoma Grade 2 Sigmoid colon 0/14 nodes with mets. - History of Present Illness HPI: BRIEF HISTORY/INDICATIONS Mrs. Hall is an 82-year-old female who presents today to [facility] to undergo colonoscopy as well as a colonic resection of her known malignancy. Patient had recently underwent a colonoscopy and was found to have several adenomatous colon polyps as well as a mass involving her sigmoid colon region. The patient did undergo a metastatic workup and has not been found fortunately to have evidence for metastatic disease. She was found to have a polyp described at 110 cm from the anal verge that was unable to be removed in its entirety endoscopically but was biopsied and returned as that of a tubulovillous adenoma. Patient presents today to undergo repeat colonoscopy to see if this residual polyp within her ascending colon can be removed in its entirety endoscopically in conjunction with a colonic resection. Hospital Course This is a general summary of the patient's hospital course. For more details refer to the complete medical record. Hospital course: 01/25 Colonoscopy with snare polypectomy of adenomatous polyp at the cecum in early am. Then open sigmoid resection for colon cancer mid afternoon. Transferred to CCU post op. 01/26 POD #1 Open sigmoid resection with Primary Anastomosis Doing well for POD #1, VSS urine output good. Labs stable, WBC 8.5 and HGB 12.6 Medically stable, blood pressure/blood sugars well controlled at present. Anticipate discontinuation of Rios catheter in the next 24 hours. Continue to monitor blood sugars every 6 hours, if begin to trend upward will resume basal insulin. Resume pravastatin this evening. 01/27 Doing well for POD #2. Good bowel sounds, no flatus, continue clears for now, consider full liquids by evening if no nausea. Encourage ambulation, will order PT/OT. VSS, labs are ok. Urine output > 100/hr, will DC rios. 01/28 Lisinopril increased to 10mg yesterday with pressures still in 150's an 160's - add agent if remains high Afebile overnight, rios removed Tolerating liquid diet Advanced to full liquid diet-typically on Novolin 70/30 50 units with breakfast , 30 units with supper; monitor intake today but anticipate need to resume insulins soon at lower doses. Post-op anemia without obvious signs of blood loss, also likely dilutional. Pathology pending. on PPI and zantac. 01/29 Lisinopril increased to 10mg 01/27 - had pressure in 180's this morning, may correlate with pain of getting up this morning. Monitor through the morning to titrate meds. Febrile this morning - UA negative, check CXR today. Tolerating diet. Typically on Novolin 70/30 50 units with breakfast, 30 units with supper; monitor intake and sugar through the day to restart if needed. On ISS now. Post-op anemia stable. on PPI and zantac. Wean off LOAD MIXER per surgery. 01/30 Doing well and could be discharged once she has a bowel movement. 01/31 Bowel movement after X-Prep, DC to home. Follow up with David in 2-3 weeks, sooner if concerns arise. Time spent with patient: 25 - 35 minutes Resuscitation Status: Full Code Discharge Plan - Med Rec/Dispo Referrals/Follow Up: Chuck Hrenandez MD [Physician] - 02/14/18 1:15 pm Prescriptions: New Hydrocodone/APAP 5/325 [River 5/325] 1 tab PO Q5H PRN #15 tab PRN Reason: Pain Continue Venlafaxine XR [Effexor Xr] 150 mg PO DAILY Allopurinol [Zyloprim] 300 mg PO DAILY Pravastatin [Pravachol] 20 mg PO DAILY Lisinopril [Prinivil] 5 mg PO DAILY #30 tab Venlaflaxine XR [Effexor Xr] 75 mg PO DAILY Humulin 70/30 (insulin NPH and reg human insulin) 100 unit/mL (70-30) SQ 30 unit SQ WS ml Naproxen sodium 220 mg tablet 220 mg PO Q12H PRN PRN Reason: pain Nitrostat (nitroglycerin) 0.4 mg sublingual tablet 0.4 mg SL Q5M PRN PRN Reason: Chest Pain Zantac (Ranitidine) 150 mg tablet 150 mg PO HS Tylenol PM diphenhydramine 25 mg-acetaminophen 500 mg tablet 3 tab PO HS PRN tab PRN Reason: Sleep Humulin 70/30 (insulin NPH and reg human insulin) 100 unit/mL (70-30) SQ 50 unit SQ QAM ml aspirin 325 mg tablet 325 mg PO DAILY - Disposition Discharged Home, Self-Care - Dismissal Complete Discharge Instructions are:: Complete
== END 2018-01-31 15:05 | disposition home or self-care (01) | DRG 331 ==
LOC: NMC.PERIOP 05:53 → CCU 16:11 → SRG 01-27 13:45
PROVIDERS: ADMIT Surgery; ATTEND Surgery